=== PATIENT | female | born 2000 | race Caucasian/White ===

== ENCOUNTER 2021-07-12 09:18 | Outpatient (REF) | payer OTHER, SELFPAY ==
[2021-07-12 14:19] LABS: Monotest Negative (Negative)
== END 2021-07-12 09:19 | disposition home or self-care (01) ==
LOC: HO.HMGCLDS 09:18
PROVIDERS: Visit Provider Internal Medicine
DX: J02.9 Acute pharyngitis, unspecified (principal)
CPT/HCPCS: 36415; 86308

== ENCOUNTER 2022-04-13 19:10 | Emergency (ER) | payer OTHER, SELFPAY ==
--- NOTE | ~2022-04-13 | US_ITS ---
EXAMINATION: US PELVIS CLINICAL INFORMATION: Severe left lower quadrant pain COMPARISON: None TECHNIQUE: Ultrasound of the pelvis is performed using both transabdominal and transvaginal transducers along with Doppler. Transvaginal imaging is performed due to inadequate visualization transabdominally. FINDINGS: Uterus: The uterus is anteverted and measures 8.1 x 4.2 x 5.1 cm. The double wall endometrial thickness is 0.6 mm. Malpositioned IUD which appears low-lying and malrotated with portions of the arms embedded within the myometrium. The uterus is smooth in contour and has normal myometrial echogenicity. No visible fibroid. Adnexa: There is normal color flow to the adnexa. There is no ovarian torsion. Right ovary was not identified sonographically. No right adnexal mass. Left ovary measures 3.1 x 2.1 x 1.9 cm. Left ovary is unremarkable in appearance with vascular flow present. Trace simple pelvic free fluid, within physiologic limits of volume. US/US pelvic and transvaginal IMPRESSION: Malpositioned IUD which appears low-lying and malrotated with portions of the arms embedded within the myometrium, which may compromise efficacy. Left ovary is unremarkable without evidence of ovarian torsion. The right ovary was not identified sonographically.
--- NOTE | ~2022-04-13 | US_ITS ---
EXAMINATION: US PELVIS CLINICAL INFORMATION: Severe left lower quadrant pain COMPARISON: None TECHNIQUE: Ultrasound of the pelvis is performed using both transabdominal and transvaginal transducers along with Doppler. Transvaginal imaging is performed due to inadequate visualization transabdominally. FINDINGS: Uterus: The uterus is anteverted and measures 8.1 x 4.2 x 5.1 cm. The double wall endometrial thickness is 0.6 mm. Malpositioned IUD which appears low-lying and malrotated with portions of the arms embedded within the myometrium. The uterus is smooth in contour and has normal myometrial echogenicity. No visible fibroid. Adnexa: There is normal color flow to the adnexa. There is no ovarian torsion. Right ovary was not identified sonographically. No right adnexal mass. Left ovary measures 3.1 x 2.1 x 1.9 cm. Left ovary is unremarkable in appearance with vascular flow present. Trace simple pelvic free fluid, within physiologic limits of volume. US/US pelvic ovarian doppler IMPRESSION: Malpositioned IUD which appears low-lying and malrotated with portions of the arms embedded within the myometrium, which may compromise efficacy. Left ovary is unremarkable without evidence of ovarian torsion. The right ovary was not identified sonographically.
--- NOTE | ~2022-04-13 | CT_ITS ---
EXAMINATION: CT ABDOMEN AND PELVIS WITH CONTRAST CLINICAL INFORMATION: Left lower quadrant pain COMPARISON: Ultrasound pelvis 04/13/2022 TECHNIQUE: Multidetector volumetric images were obtained from the superior aspect of the liver through the pubic symphysis following administration 85 mL of Omnipaque 350 intravenous contrast. Sagittal and coronal reformatted images were obtained on the technologist's workstation. Oral contrast: No This CT examination was performed using dose optimization techniques as appropriate, variously including the following: *Automated exposure control *Adjustment of mA and/or kV according to patient size (this includes techniques or standardized protocols for targeted exams where dose is matched to indication/reason for exam; i.e. extremities or head) *Use of iterative reconstruction technique DLP: 952 mGy-cm FINDINGS: LUNG BASES: The visualized lung bases are unremarkable. LIVER, GALLBLADDER, AND BILIARY TREE: The liver is normal in size, shape, and mild hypoattenuation.. No focal hepatic lesion or biliary ductal dilatation is present. The gallbladder is unremarkable with no evidence of radiopaque gallstones, gallbladder wall thickening, or obvious pericholecystic inflammatory changes. PANCREAS: Unremarkable. SPLEEN: Unremarkable. ADRENAL GLANDS: Unremarkable. KIDNEYS AND URETERS: The kidneys are normal in size, shape, and attenuation. There is a 2 mm nonobstructive radiopaque calculi lower pole calyx right kidney. No additional radiopaque calculi seen. There is no hydronephrosis. No focal lesion seen. There is no perinephric stranding. BLADDER: Unremarkable. GASTROINTESTINAL TRACT: There is scattered stool and gas seen throughout the colon without significant distention. The small bowel loops are normal caliber. Appendix is normal caliber. ABDOMINAL WALL: No significant hernia is appreciated. LYMPH NODES: Normal. VASCULAR: Unremarkable. PELVIC VISCERA: There is a IUD visualized within the uterus. No adnexal mass or free fluid seen. No adnexal free fluid or abnormal lymphadenopathy. OSSEOUS STRUCTURES: No aggressive lytic or sclerotic process seen. CT/CT abdomen pelvis w IV con IMPRESSION: 1. No acute intra-abdominal process seen. 2. Nonobstructive radiopaque calculi lower pole calyx right kidney.. Mild hepatic steatosis. 3. An IUD is noted within the endometrial canal, better described on the preceding ultrasound pelvis exam Fleischner guidelines were followed.
[2022-04-13 19:14] VITALS: BP 137/91; PULSE 60; RESP 18; TEMP 36.8; O2SAT 97; BMI 36.9
--- NOTE | 2022-04-13 19:22 | ED.ABDPAIN ---
HPI - Abdominal Pain General Chief Complaint: Abdominal Pain Stated Complaint: abd pain Time Seen by Provider: 04/13/22 19:13 Source: patient Mode of arrival: ambulatory Limitations: no limitations History of Present Illness HPI narrative: This is a 22-year-old female presenting to the emergency department with sudden onset severe left lower quadrant pain that radiates to left flank region. Patient tells me pain started at approximately 17:00, has been sharp, intermittent in nature and rates it a 10/10. Patient still has her appendix, gallbladder. No OBGYN issues that she knows of, no history of ovarian cyst. Unlikely that she is she tells me she has an IUD and had a negative at home test a few days ago. Patient diaphoretic secondary to pain and appears uncomfortable. Patient denies chest pain, shortness of breath, fevers, chills, headache, vision changes, dizziness, weakness. Patient does not get normal periods as she is on an IUD, she experiences intermittent spotting. MD elicited complaint: abdominal pain Related Data Home Medications Medication Instructions Recorded Confirmed albuterol sulfate 90 mcg/actuation 2 puff inhalation Q6H PRN wheezing 07/12/21 07/12/21 aerosol inhaler buspirone 30 mg tablet 30 mg PO BID 07/12/21 07/12/21 fluoxetine 40 mg capsule 40 mg PO DAILY 07/12/21 07/12/21 lamotrigine 250 mg tablet,extended 250 mg PO DAILY 07/12/21 07/12/21 release 24 hr Previous Rx's Medication Instructions Recorded azithromycin 250 mg tablet See Rx Instructions PO .COMPLEX #6 07/12/21 tabs morphine 15 mg immediate release 15 mg PO Q8H PRN pain #8 tabs 04/13/22 tablet ondansetron 4 mg disintegrating 4 mg PO Q6H PRN nausea and 04/13/22 tablet vomiting #14 tabs Allergies Allergy/AdvReac Type Severity Reaction Status Date / Time No Known Allergies Allergy Verified 07/12/21 09:11 Review of Systems Review of Systems Constitutional : No Weight loss, No Fever, No Chills, No Fatigue, No Malaise ENT/Mouth : No sore throat, No Rhinorrhea Eyes: No Eye Pain, No Swelling, No Redness Cardiovascular : No Chest Pain, No SOB, No Dyspnea on Exertion, No Orthopnea, No Edema, No Palpitations Respiratory : No Cough, No Sputum, No Wheezing Gastrointestinal : No Nausea, No Vomiting, No Diarrhea, No Constipation, + abdominal Pain, No Hematochezia, No Melena Genitourinary : No Dysuria, No Urinary Frequency, No Hematuria, Musculoskeletal : No joint pain, No Myalgias, No Joint Swelling Skin : No Skin Lesions, No rash Neuro : No Weakness, No Numbness, No Dizziness, No Headache Psych : No Anxiety/Panic, No Depression All other systems reviewed and are negative Yes all other systems are reviewed and are negative [facility] Past Medical History Attestation statement: The following information was validated with the patient. Source: old records reviewed and nursing notes reviewed Social History Social History Alcohol intake: current Alcohol intake frequency: holidays/special occasions only Smoked in Last 30 Days: No Use of substances other than those prescribed or required for medical reasons: No Advance Directives: No Advance Directives Information Provided: No Physical Exam ED Vital Signs: Vital Signs - 24 hr 04/13/22 19:14 04/13/22 20:12 04/13/22 22:02 Temperature 98.3 F 97.9 F 98.2 F Pulse Rate 60 62 64 Respiratory Rate 18 17 20 Blood Pressure 137/91 H 138/85 122/67 Pulse Oximetry 97 96 97 Oxygen Delivery Method Room Air Room Air Room Air BMI result Body Mass Index 36.9 Vital signs stable Appearance: Alert.? Oriented X3.? No acute distress.? Head: Normocephalic, atraumatic, no step-offs or deformities Eyes: Pupils equal, round and reactive to light.? ENT: Pharynx normal.? Neck: Normal inspection.? Neck supple.? CVS: Normal heart rate and rhythm.? Pulses normal.? Respiratory: No respiratory distress.? Breath sounds normal.? Abdomen: Soft and significant tenderness to lower abdomen particularly to left lower quadrant..? Skin: Skin warm and dry.? Normal skin color.? Normal skin turgor.? Extremities: No lower extremity edema.? No calf ttp. 5/5 strength to bilateral upper and lower extremities Back: No CVA tenderness bilaterally Neuro: Oriented X 3.? No motor deficit.? No sensory deficit. CN 2-12 intact Course Reevaluation(s) Reevaluation #1: CBC with slight leukocytosis 11.6. Chemistry with no acute electrolyte abnormalities requiring intervention. Lipase within normal limits. Beta hCG negative. Urine negative. COVID negative. Ultrasound showing a malpositioned IUD which appears low lying and malrotated with portions of the arms imbedded within the myometrium which may compromise efficacy. Left ovary is unremarkable without evidence of ovarian torsion. Right ovary was not identified on ultrasound therefore low suspicion for torsion also patient's pains primarily to the left lower quadrant therefore low suspicion. CT of the abdomen and pelvis with no acute intra-abdominal process seen. Nonobstructive radiopaque calculi the lower pole of the harvinder of the right kidney. Mild hepatic steatosis. An IUD is noted within the endometrial canal again likely malpositioned. Patient continued to report pain therefore Dilaudid was given 0.5 initially continued to complain of 6/10 pain another 0.25 mg of Dilaudid ordered. I did speak to Dr. Bonner you states that IUD should come out. IUD was removed at the bedside by this NANETTE and Dr. Cho. Patient reports after IUD was removed slight symptomatic relief Time: 22:53 Reevaluation #2: Patient now reports pain is at 2/10, no longer having discomfort to flank. Patient tells me her pain is much improved from when she 1st arrived. Denies chest pain and shortness of breath. Patient will be discharged home advised to follow-up with OBGYN. Educated patient on diagnosis and treatment plan, answered all question, patient verbalizes understanding. At this time patient will be discharged home, advised to return with new or worsening symptoms. Educated on worrisome signs and symptoms and when to return. At this time I feel comfortable discharge home. Time: 23:41 Medical Decision Making Medical Decision Making [facility] Narrative: 192 22-year-old female presents with sudden-onset severe left lower quadrant pain that radiates to her back. Physical exam with significant tenderness to lower abdomen particularly to left lower quadrant. Concerns for possible appendicitis versus acute abdomen versus diverticulitis versus kidney stones. Unlikely pyelonephritis, UTI. Less likely ovarian torsion or ruptured ovarian cyst however will obtain ultrasound to rule out. HX and PE not consistent w/ AAA, or dissection. Plan ultrasound, labs, imaging, urine. Differential Diagnosis Differential Diagnoses: The differential diagnosis associated with the presentation includes Concerns for possible appendicitis versus acute abdomen versus diverticulitis versus kidney stones. Unlikely pyelonephritis, UTI. Less likely ovarian torsion or ruptured ovarian cyst. HX and PE not consistent w/ AAA, or dissection. Admission/Observation Consideration of admission/observation: Escalation of care including admission/observation considered Lab Data MDM Lab Attestation statement: I reviewed the patient's lab results. 04/13/22 19:21 04/13/22 19:21 Labs: Lab Results 04/13/22 04/13/22 04/13/22 Range/Units 19:21 19:21 19:21 WBC 11.6 H (4.8-10.8) X10*3/uL RBC 4.40 (4.20-5.50) X10*6/uL Hgb 14.0 (12.0-16.0) g/dl Hct 39.8 (37.0-47.0) % MCV 90.5 (80.0-98.0) fL MCH 31.8 (27.0-33.0) pg MCHC 35.2 H (31.0-35.0) g/dl RDW 12.0 (11.0-16.0) % Plt Count 325 (160-400) X10*3/uL MPV 9.5 (9.4-12.3) fL Immature Gran % (Auto) 0.4 (0.0-0.4) % Neut % (Auto) 52.0 (45-73) % Lymph % (Auto) 31.5 (20-40) % [place] % (Auto) 7.7 (2-11) % Eos % (Auto) 7.7 H (0-4) % Baso % (Auto) 0.7 (0-2) % Lymph # (Auto) 3.6 (1.2-4.9) X10*3/uL [place] # (Auto) 0.9 (0.1-1.2) X10*3/uL Eos # (Auto) 0.9 H (0.0-0.4) X10*3/uL Baso # (Auto) 0.1 (0.0-0.2) X10*3/uL Abs Immat Gran (auto) 0.05 H (0.00-0.03) X10*3/uL Absolute Neuts (auto) 6.0 (2.0-8.3) x10*3/uL Absolute Nucleated RBC 0.000 (0.0-0.012) X10*3/uL Nucleated RBC % (auto) 0.0 (0.0-0.2) /100WBC Sodium 139 (135-145) mmol/L Potassium 3.8 (3.3-5.1) mmol/L Chloride 105 (96-108) mmol/L Carbon Dioxide 22 (22-29) mmol/L Anion Gap 16 (12-20) BUN 13 (9-16) mg/dL Creatinine 0.84 (0.5-1.4) mg/dL Estim Creat Clear Calc 139.8 Estimated GFR > 60 Random Glucose 93 (60-115) mg/dL Lactic Acid 1.7 (0.5-2.0) mmol/L Calcium 9.7 (8.4-10.2) mg/dL Magnesium 1.8 (1.6-2.6) mg/dL Total Bilirubin 0.6 (0.0-1.0) mg/dL AST 30 (5-31) U/L ALT 45 H (0-31) U/L Alkaline Phosphatase 69 (39-117) U/L Total Protein 8.0 (6.5-8.0) g/dL Albumin 4.8 (3.5-5.0) g/dL Lipase 35 (8-78) U/L Beta HCG, Quant < 2 mIU/mL Urine Color Urine Appearance Urine pH (5.0-9.0) Ur Specific [place] (1.005-1.025) Urine Protein (Neg-Trace) mg/dL Urine Glucose (UA) (Negative) mg/dL Urine Ketones (Negative) mg/dL Urine Blood (Negative) Urine Nitrite (Negative) Ur Leukocyte Esterase (Negative) Urine RBC (0-2) /HPF Urine WBC (0-5) /HPF Ur Squamous Epith Cells (0-2) /HPF Urine Bacteria (None Seen) Hyaline Casts (0-2) /LPF COVID-19 (TONIA) (Negative) COVID-19 Clin Com 04/13/22 04/13/22 Range/Units 19:23 19:29 WBC (4.8-10.8) X10*3/uL RBC (4.20-5.50) X10*6/uL Hgb (12.0-16.0) g/dl Hct (37.0-47.0) % MCV (80.0-98.0) fL MCH (27.0-33.0) pg MCHC (31.0-35.0) g/dl RDW (11.0-16.0) % Plt Count (160-400) X10*3/uL MPV (9.4-12.3) fL Immature Gran % (Auto) (0.0-0.4) % Neut % (Auto) (45-73) % Lymph % (Auto) (20-40) % [place] % (Auto) (2-11) % Eos % (Auto) (0-4) % Baso % (Auto) (0-2) % Lymph # (Auto) (1.2-4.9) X10*3/uL [place] # (Auto) (0.1-1.2) X10*3/uL Eos # (Auto) (0.0-0.4) X10*3/uL Baso # (Auto) (0.0-0.2) X10*3/uL Abs Immat Gran (auto) (0.00-0.03) X10*3/uL Absolute Neuts (auto) (2.0-8.3) x10*3/uL Absolute Nucleated RBC (0.0-0.012) X10*3/uL Nucleated RBC % (auto) (0.0-0.2) /100WBC Sodium (135-145) mmol/L Potassium (3.3-5.1) mmol/L Chloride (96-108) mmol/L Carbon Dioxide (22-29) mmol/L Anion Gap (12-20) BUN (9-16) mg/dL Creatinine (0.5-1.4) mg/dL Estim Creat Clear Calc Estimated GFR Random Glucose (60-115) mg/dL Lactic Acid (0.5-2.0) mmol/L Calcium (8.4-10.2) mg/dL Magnesium (1.6-2.6) mg/dL Total Bilirubin (0.0-1.0) mg/dL AST (5-31) U/L ALT (0-31) U/L Alkaline Phosphatase (39-117) U/L Total Protein (6.5-8.0) g/dL Albumin (3.5-5.0) g/dL Lipase (8-78) U/L Beta HCG, Quant mIU/mL Urine Color Yellow Urine Appearance Clear Urine pH 5.5 (5.0-9.0) Ur Specific [place] 1.020 (1.005-1.025) Urine Protein Negative (Neg-Trace) mg/dL Urine Glucose (UA) Negative (Negative) mg/dL Urine Ketones Negative (Negative) mg/dL Urine Blood Trace H (Negative) Urine Nitrite Negative (Negative) Ur Leukocyte Esterase Negative (Negative) Urine RBC 0-2 (0-2) /HPF Urine WBC 0-5 (0-5) /HPF Ur Squamous Epith Cells 0-2 (0-2) /HPF Urine Bacteria None Seen (None Seen) Hyaline Casts 0-2 (0-2) /LPF COVID-19 (TONIA) Negative (Negative) COVID-19 Clin Com See Note Independent Interpretation I performed an independent interpretation of an: Ultrasound and CT Scan Radiology Impression Discussion of test interpretation with radiology: I have reviewed the radiologist's reading. Core Measures AMI core measures followed: Yes Measure exclusions: not indicated Medications Administered Discontinued Medications Generic Name Dose Route Start Last Admin Trade Name Freq PRN Reason Stop Dose Admin Hydromorphone HCl 0.5 mg 04/13/22 20:42 04/13/22 20:57 Hydromorphone Hcl 0.5 Mg/0.5 Ml Syringe IVPUSH 04/13/22 20:43 0.5 mg ONCE ONE Administration Protocol Hydromorphone HCl 0.25 mg 04/13/22 22:09 04/13/22 22:39 Hydromorphone Hcl 0.5 Mg/0.5 Ml Syringe IVPUSH 04/13/22 22:10 0.25 mg ONCE ONE Administration Protocol Iohexol 100 ml 04/13/22 20:23 04/13/22 20:24 Iohexol 350 Mg/Ml 100 Ml Infus..Btl IV 04/13/22 20:24 85 ml ONCE ONE Administration Morphine Sulfate 4 mg 04/13/22 19:13 04/13/22 19:46 Morphine Sulfate 4 Mg/Ml Cartridge IVPUSH 04/13/22 19:14 4 mg ONCE ONE Administration Protocol Critical Care Time Critical Care Time Critical Care Time: Yes Total Critical Care Time: 35 Attestation: I attest to this time spent taking care of the patient, obtaining history, physical, reviewing labs, imaging, speaking to my attending, speaking to specialist. Discharge Plan Discharge Clinical Impression: Lower abdominal pain, Malpositioned IUD Patient Disposition: Home, Self-Care Instructions: Abdominal Pain (ED) Additional Instructions: Take your medications as prescribed. If you were prescribed antibiotics today, it is important that you take your medication to their entirety, do not skip any doses, do not finish them early. Follow-up with your primary care provider this week. Follow up with OBGYN as soon as possible Return to the emergency department with new or worsening symptoms. Such as fevers, chills, chest pain, shortness of breath, nausea, vomiting, dizziness, headache, vision changes, lethargy In case of emergency call 911 CT/CT abdomen pelvis w IV con IMPRESSION: 1. No acute intra-abdominal process seen. 2. Nonobstructive radiopaque calculi lower pole calyx right kidney.. Mild hepatic steatosis. 3. An IUD is noted within the endometrial canal, better described on the preceding ultrasound pelvis exam Fleischner guidelines were followed. ?US/US pelvic and transvaginal IMPRESSION: ? Malpositioned IUD which appears low-lying and malrotated with portions of the arms embedded within the myometrium, which may compromise efficacy. ? Left ovary is unremarkable without evidence of ovarian torsion. The right ovary was not identified sonographically. ? Prescriptions: New morphine 15 mg tablet 15 mg PO Q8H PRN (Reason: pain) Qty: 8 0RF Rx Instructions: Partial Fill upon patient request. ondansetron 4 mg tablet,disintegrating 4 mg PO Q6H PRN (Reason: nausea and vomiting) Qty: 14 0RF No Action buspirone 30 mg tablet 30 mg PO BID lamotrigine 250 mg tablet extended release 24hr 250 mg PO DAILY fluoxetine 40 mg capsule 40 mg PO DAILY albuterol sulfate 90 mcg/actuation HFA aerosol inhaler 2 puff inhalation Q6H PRN (Reason: wheezing) azithromycin 250 mg tablet See Rx Instructions PO .COMPLEX Qty: 6 0RF Rx Instructions: take 500 mg today (day 1), then 250 mg for 4 days (days 2-5) PO Referrals: Physician,Unknown J [Primary Care Provider] - 2 days Stand Alone Forms: Work/School Release
[2022-04-13 19:26] LABS: MANUAL DIFF FLAG NO
[2022-04-13 19:39] LABS: Lactic Acid 1.7 mmol/L (0.5-2.0)
[2022-04-13 19:43] LABS: Basophils Absolute Auto 0.1 X10*3/uL (0.0-0.2); Basophils Percent Auto 0.7 % (0-2); Eosinophils Absolute Auto 0.9 X10*3/uL (0.0-0.4); Eosinophils Percent Auto 7.7 % (0-4); Hematocrit 39.8 % (37.0-47.0); Imm Gran Abs Auto 0.05 X10*3/uL (0.00-0.03); Imm Gran Pct Auto 0.4 % (0.0-0.4); Lymphocytes Absolute Auto 3.6 X10*3/uL (1.2-4.9); Lymphocytes Percent Auto 31.5 % (20-40); Mean Corpuscular HGB Conc 35.2 g/dl (31.0-35.0); Mean Corpuscular Hemoglobin 31.8 pg (27.0-33.0); Mean Corpuscular Volume 90.5 fL (80.0-98.0); Mean Platelet Volume 9.5 fL (9.4-12.3); Monocytes Absolute Auto 0.9 X10*3/uL (0.1-1.2); Monocytes Percent Auto 7.7 % (2-11); Platelet Count 325 X10*3/uL (160-400); White Blood Count 11.6 X10*3/uL (4.8-10.8)
[2022-04-13] MEDS: Morphine Sulfate 4 MG/ML CARTRIDGE IVPUSH (19:46)
[2022-04-13 19:47] LABS: Alanine Aminotransferase 45 U/L (0-31); Albumin Level 4.8 g/dL (3.5-5.0); Alkaline Phosphatase 69 U/L (39-117); Anion Gap 16 (12-20); Aspartate Amino Transferase 30 U/L (5-31); Bilirubin Total 0.6 mg/dL (0.0-1.0); Blood Urea Nitrogen 13 mg/dL (9-16); Calcium 9.7 mg/dL (8.4-10.2); Carbon Dioxide 22 mmol/L (22-29); Chloride 105 mmol/L (96-108); Creatinine Clr Calc Pharmacy 139.8; Estimated Glomerular Filt Rate > 60; Glucose Random 93 mg/dL (60-115); Lipase 35 U/L (8-78); Magnesium 1.8 mg/dL (1.6-2.6); Potassium 3.8 mmol/L (3.3-5.1); Sodium 139 mmol/L (135-145)
[2022-04-13 19:49] LABS: Appearance Urine Clear; Color Urine Yellow; Glucose Urine UA Negative (Negative); Leukocyte Esterase Urine Negative (Negative); Nitrite Urine Negative (Negative); PH 5.5 (5.0-9.0); UMIC TRIGGER UACC YES; Urine Blood Trace (Negative); Urine Ketones Negative (Negative); Urine Protein Negative (Neg-Trace)
[2022-04-13 19:54] LABS: HCG Quantitative < 2 mIU/mL
[2022-04-13 19:55] LABS: Bacteria Urine None Seen (None Seen); Hyaline Casts Urine 0-2 /LPF (0-2); RBC Urine 0-2 /HPF (0-2); Squamous Epithelial Cell Urine 0-2 /HPF (0-2); WBC Urine 0-5 /HPF (0-5)
[2022-04-13 20:05] LABS: COVID-19 Test Negative (Negative); IDNOW Serial# 55D5AD1C
[2022-04-13 20:12] VITALS: BP 138/85; PULSE 62; RESP 17; TEMP 36.6; O2SAT 96
[2022-04-13] MEDS: iohexoL 350 MG/ML 100 ML INFUS..BTL IV (20:24)
[2022-04-13] MEDS: HYDROmorphone HCl 0.5 MG/0.5 ML SYRINGE IVPUSH (20:57)
--- NOTE | 2022-04-13 21:01 | PC.NURSE ---
pt medicated per May, Notified STORMY Nolen
[2022-04-13 22:02] VITALS: BP 122/67; PULSE 64; RESP 20; TEMP 36.8; O2SAT 97
[2022-04-13] MEDS: HYDROmorphone HCl 0.5 MG/0.5 ML SYRINGE 0.25 MG IVPUSH (22:39)
== END 2022-04-14 00:04 | disposition home or self-care (01) ==
PROVIDERS: Physician Assistant; Emergency Provider Internal Medicine
DX: R10.32 Left lower quadrant pain (principal); T83.32XA Displacement of intrauterine contraceptive device, initial encounter; Y76.8 Miscellaneous obstetric and gynecological devices associated with adverse incidents, not elsewhere classified; Y92.9 Unspecified place or not applicable; Z30.432 Encounter for removal of intrauterine contraceptive device; Z79.899 Other long term (current) drug therapy; Z20.822 Contact with and (suspected) exposure to COVID-19
CPT/HCPCS: 74177; 76830; 76856; 80053; 81001; 83605; 83690; 83735; 84702; 85025; 87040; 87635; 93975; 96374; 96375; 96376; 99284; J1170; J2270; Q9967

== ENCOUNTER 2022-06-04 18:01 | Inpatient (IN) | payer OTHER, SELFPAY ==
--- NOTE | ~2022-06-04 | CT_ITS ---
EXAMINATION: CT ABDOMEN AND PELVIS WITH CONTRAST CLINICAL INFORMATION: Abdominal pain. Diaphoresis. COMPARISON: CT abdomen/pelvis dated 04/13/2022. TECHNIQUE: Multidetector volumetric images were obtained from the superior aspect of the liver through the pubic symphysis following administration 85 mL of Omnipaque 350 intravenous contrast. Sagittal and coronal reformatted images were obtained on the technologist's workstation. Oral contrast: No This CT examination was performed using dose optimization techniques as appropriate, variously including the following: *Automated exposure control *Adjustment of mA and/or kV according to patient size (this includes techniques or standardized protocols for targeted exams where dose is matched to indication/reason for exam; i.e. extremities or head) *Use of iterative reconstruction technique DLP: 856 mGy-cm FINDINGS: LUNG BASES: The visualized lung bases are unremarkable. LIVER, GALLBLADDER, AND BILIARY TREE: The liver is normal in size, shape, and attenuation. No focal hepatic lesion or biliary ductal dilatation is present. The gallbladder is unremarkable with no evidence of radiopaque gallstones, gallbladder wall thickening, or obvious pericholecystic inflammatory changes. PANCREAS: Unremarkable. SPLEEN: Mildly enlarged measuring up to 14.3 cm, unchanged when compared to the prior examination. ADRENAL GLANDS: Unremarkable. KIDNEYS AND URETERS: The kidneys are normal in size, shape, and attenuation. Right lower pole 0.3 cm nonobstructing renal stone, unchanged. No additional renal or ureteral stone. No hydronephrosis or hydroureter. There is mild right perinephric stranding and minimal left perinephric stranding, new when compared to the prior examination. Findings could represent pyelonephritis in the appropriate clinical setting. Appears to be minimal enhancement within the wall of the right and left renal pelvis, new/increased when compared to the prior examination. BLADDER: Nondistended. GASTROINTESTINAL TRACT: The small and large bowel are unremarkable. No small or large bowel traction. No bowel wall thickening or inflammatory change. The appendix is unremarkable. PERITONEAL CAVITY: No intra-abdominal free air or free fluid. No intra-abdominal mass or organized fluid collection/abscess formation. ABDOMINAL WALL: No significant hernia is appreciated. LYMPH NODES: No lymphadenopathy. VASCULAR: Unremarkable. PELVIC VISCERA: IUD within the uterus. OSSEOUS STRUCTURES: Unremarkable. CT/CT abdomen pelvis w IV con IMPRESSION: 1. Mild right and minimal left perinephric stranding, new when compared to the prior examination. There appears to be minimal enhancement within the wall of the right and left renal pelvis, new/increased when compared to the prior examination. Findings could represent pyelonephritis in the appropriate clinical setting. 2. Stable right lower pole 0.3 cm nonobstructing renal stone. No additional renal or ureteral stone. No hydronephrosis or hydroureter. 3. No bowel wall thickening or inflammatory change. No small or large bowel obstruction. Unremarkable appendix. 4. No intra-abdominal mass, lymphadenopathy, or ascites. Fleischner guidelines were followed.
[2022-06-04 18:09] VITALS: BP 129/78; PULSE 107; RESP 20; TEMP 37.1; O2SAT 98; BMI 36.9
--- NOTE | 2022-06-04 18:09 | ED_ITS ---
HPI - Fever General Chief Complaint: General Medical Stated Complaint: fever,headache Time Seen by Provider: 06/04/22 18:06 Source: patient Mode of arrival: ambulatory Limitations: no limitations History of Present Illness HPI Narrative: 22-year-old female presents with 1 day of fevers as high as 103, back and flank pain, abdominal pain, tachycardia and diaphoresis. MD elicited complaint: fever Pertinent past history: sepsis Onset (ago): day(s) (1) Measured temperature: 103 F Context: sick contacts and recent travel Relieving factors: acetaminophen and ibuprofen Associated symptoms: chills, abdominal pain, diarrhea, back/flank pain and other (Diaphoresis) Treatments prior to arrival fever: acetaminophen and ibuprofen Related Data Home Medications Medication Instructions Recorded Confirmed albuterol sulfate 90 mcg/actuation 2 puff inhalation Q6H PRN wheezing 07/12/21 07/12/21 aerosol inhaler buspirone 30 mg tablet 30 mg PO BID 07/12/21 07/12/21 fluoxetine 40 mg capsule 40 mg PO DAILY 07/12/21 07/12/21 lamotrigine 250 mg tablet,extended 250 mg PO DAILY 07/12/21 07/12/21 release 24 hr Previous Rx's Medication Instructions Recorded azithromycin 250 mg tablet See Rx Instructions PO .COMPLEX #6 07/12/21 tabs morphine 15 mg immediate release 15 mg PO Q8H PRN pain #8 tabs 04/13/22 tablet ondansetron 4 mg disintegrating 4 mg PO Q6H PRN nausea and 04/13/22 tablet vomiting #14 tabs Allergies Allergy/AdvReac Type Severity Reaction Status Date / Time No Known Allergies Allergy Verified 07/12/21 09:11 Review of Systems Review of Systems: Constitutional: Positive Fever, positive Chills ENT/Mouth: No Ear Pain, No Hoarseness, No sore throat Eyes: No Eye Pain, No Swelling, No Redness, No Foreign Body Cardiovascular: No Chest Pain, No SOB Respiratory: No Cough, No Dyspnea Gastrointestinal: Positive Nausea, No Vomiting, positive Diarrhea, positive flank and abdominal Pain Genitourinary: No Dysuria, No Hematuria Musculoskeletal: positive back pain, No Myalgias, No Joint Swelling Skin: No Skin lacerations, No rash Neuro: No Weakness, No Dizziness, No Headache Yes all other systems are reviewed and are negative [facility] Past Medical History Attestation statement: The following information was validated with the patient. Source: old records reviewed Medical History Mood disorder Social History Social History Alcohol intake: current Alcohol intake frequency: holidays/special occasions only Advance Directives: No Advance Directives Information Provided: No Physical Exam Vital Signs: Vital Signs: Last Vital Signs Temp 101.8 F H 06/04/22 19:45 Pulse 93 06/04/22 20:19 Resp 17 06/04/22 20:19 BP 112/73 06/04/22 20:19 Pulse Ox 97 06/04/22 19:45 O2 Del Method 06/04/22 19:45 BMI result Body Mass Index 36.9 Appearance: Alert. Oriented X3. Moderate distress. Febrile. Eyes: Pupils equal, round and reactive to light. Sclera nonicteric. ENT: Pharynx normal. Neck: Normal inspection. Neck supple. CVS: Tachycardic heart rate and rhythm. Diaphoretic. Respiratory: No respiratory distress. Breath sounds normal. Abdomen: Soft and diffusely tender with CVA tenderness. Skin: Skin warm and diaphoretic. Normal skin color. Extremities: No lower extremity edema. Gait well-balanced well coordinated. Neuro: No motor deficit. No sensory deficit. Cranial nerves 2-12 intact. Course Course Course Narrative: 22-year-old female with past medical history of kidney stones presents with approximate 24 hours of fevers, back pain, abdominal pain, diarrhea and diaphoresis. Patient has had fevers as high as 103, has been taking Tylenol and Motrin around the clock since yesterday starting about 18:00. Patient has been able to eat and drink, but has not been able to control the fever with over-the- counter measures. She has been diaphoretic, diaphoretic on presentation, tachycardic, and febrile. Patient has traveled outside of the [place], [place] 2 weeks ago, and works as an emergency department RN. Patient has had multiple sick contacts. Will order labs, fluids for sepsis protocol, stool study, COVID, lactic and cultures. Patient has even unlabored respirations, alert oriented x4, diffuse abdominal tenderness with back pain, sexually active with IUD. Low likelihood of pregna ncy at this time. Will order D-dimer, while I do feel this is an infectious etiology, patient did travel approximately 2 weeks ago, PE is considered in differentials. 18:16 rectal temperature is 102.8. Patient meets sepsis protocol with tachycardia, fevers, tachypnea and diaphoresis. 18:27 CT abdomen pelvis with contrast pending. COVID influenza RSV test are negative. 18:42 urinalysis positive for leukocyte esterase, physical presentation consistent with pyelo. Ordered for ceftriaxone. Imaging pending. 19:00 labs indicate white count of 14.7, chemistries are within normal limits, glucose 148. Lactic 1.0, urinalysis positive for heme, of leukocyte esterase with greater than 50 wbc's. Most likely pyelonephritis, kidney stone. D-dimer is 307, low likelihood of PE at this time, source of infection most likely pyelo, patient has no pain on inspiration, no dyspnea, no chest wall tenderness. No prior history of blood clots, no immunosuppression, clotting factor deficiency or chemotherapeutic agents. 20:34 CT scan indicates pyelonephritis. Lactic 1.0, 20:39 discussion with hospitalist, plan of care is to admit for pyelo with sepsis Consultations Consultation #1: Jonas Time: 20:30 Medications Administered Generic Name Dose Route Start Last Admin Trade Name Freq PRN Reason Stop Dose Admin Enoxaparin Sodium 40 mg 06/04/22 22:00 06/04/22 21:26 Enoxaparin Sodium 40 Mg/0.4 Ml Syringe SUBCUT 40 mg Q24H SILVERIO Administration Discontinued Medications Generic Name Dose Route Start Last Admin Trade Name Freq PRN Reason Stop Dose Admin Acetaminophen 650 mg 06/04/22 20:21 06/04/22 20:45 Acetaminophen 325 Mg Tablet PO 06/04/22 20:22 650 mg ONCE ONE Administration Buspirone HCl 30 mg 06/04/22 20:57 06/04/22 21:26 Buspirone Hcl 10 Mg Tablet PO 06/04/22 20:58 30 mg ONCE ONE Administration Fluoxetine HCl 40 mg 06/04/22 20:57 06/04/22 21:26 Fluoxetine Hcl 20 Mg Capsule PO 06/04/22 20:58 40 mg ONCE ONE Administration Sodium Chloride 1,000 mls @ 999 mls/hr 06/04/22 18:30 06/04/22 18:54 Ns IV 06/04/22 19:30 Infused .Q1H1M SILVERIO Infusion Ceftriaxone Sodium 1 gm/ 50 mls @ 100 mls/hr 06/04/22 18:42 06/04/22 19:22 Sodium Chloride IV 06/04/22 19:11 Infused ONCE ONE Infusion Sodium Chloride 1,000 mls @ 999 mls/hr 06/04/22 21:20 06/04/22 21:26 Ns IV 06/04/22 22:20 999 mls/hr .Q1H1M ONE Administration Lamotrigine 250 mg 06/04/22 20:57 06/04/22 21:34 Lamotrigine 25 Mg Tablet PO 06/04/22 20:58 250 mg ONCE ONE Administration Morphine Sulfate 4 mg 06/04/22 20:35 06/04/22 20:45 Morphine Sulfate 4 Mg/Ml Cartridge IVPUSH 06/04/22 20:36 4 mg ONCE ONE Administration Protocol Ondansetron HCl 4 mg 06/04/22 20:35 06/04/22 20:46 Ondansetron Hcl 4 Mg/2 Ml Vial IVPUSH 06/04/22 20:36 4 mg ONCE ONE Administration Medical Decision Making Differential Diagnosis Differential Diagnoses: The differential diagnosis associated with the presentation includes UTI, pneumonia, COVID, influenza, pyelo, sepsis Admission/Observation Consideration of admission/observation: Escalation of care including admission/observation considered Will need admission for sepsis Consult Healthcare Provider Management of the patient was discussed with: Hospitalist Lab Data MDM Lab Attestation statement: I reviewed the patient's lab results. 06/04/22 18:22 06/04/22 18:22 Labs: Lab Results 06/04/22 06/04/22 06/04/22 Range/Units 18:22 18:22 18:22 WBC 14.7 H (4.8-10.8) X10*3/uL RBC 4.25 (4.20-5.50) X10*6/uL Hgb 13.0 (12.0-16.0) g/dl Hct 37.9 (37.0-47.0) % MCV 89.2 (80.0-98.0) fL MCH 30.6 (27.0-33.0) pg MCHC 34.3 (31.0-35.0) g/dl RDW 11.8 (11.0-16.0) % Plt Count 336 (160-400) X10*3/uL MPV 8.8 L (9.4-12.3) fL Immature Gran % (Auto) 0.4 (0.0-0.4) % Neut % (Auto) 76.0 H (45-73) % Lymph % (Auto) 9.2 L (20-40) % [place] % (Auto) 13.4 H (2-11) % Eos % (Auto) 0.7 (0-4) % Baso % (Auto) 0.3 (0-2) % Lymph # (Auto) 1.4 (1.2-4.9) X10*3/uL [place] # (Auto) 2.0 H (0.1-1.2) X10*3/uL Eos # (Auto) 0.1 (0.0-0.4) X10*3/uL Baso # (Auto) 0.0 (0.0-0.2) X10*3/uL Abs Immat Gran (auto) 0.06 H (0.00-0.03) X10*3/uL Absolute Neuts (auto) 11.2 H (2.0-8.3) x10*3/uL Absolute Nucleated RBC 0.000 (0.0-0.012) X10*3/uL Nucleated RBC % (auto) 0.0 (0.0-0.2) /100WBC Smear Tech's Comments VERIFIED D-Dimer High Sensitivty NG/ML Sodium 140 (135-145) mmol/L Potassium 3.6 (3.3-5.1) mmol/L Chloride 103 (96-108) mmol/L Carbon Dioxide 23 (22-29) mmol/L Anion Gap 18 (12-20) BUN 15 (9-16) mg/dL Creatinine 0.92 (0.5-1.4) mg/dL Estim Creat Clear Calc 127.7 Estimated GFR > 60 Random Glucose 148 H (60-115) mg/dL Lactic Acid (0.5-2.0) mmol/L Calcium 9.2 (8.4-10.2) mg/dL Troponin I High Sens (<3.5-17.0) ng/L Urine Color Urine Appearance Urine pH (5.0-9.0) Ur Specific [place] (1.005-1.025) Urine Protein (Neg-Trace) mg/dL Urine Glucose (UA) (Negative) mg/dL Urine Ketones (Negative) mg/dL Urine Blood (Negative) Urine Nitrite (Negative) Ur Leukocyte Esterase (Negative) Urine RBC (0-2) /HPF Urine WBC (0-5) /HPF Ur Squamous Epith Cells (0-2) /HPF Urine Bacteria (None Seen) Hyaline Casts (0-2) /LPF Urine Test (NEGATIVE) Influenza Type A (PCR) NEGATIVE (Negative) Influenza Type B (PCR) NEGATIVE (Negative) RSV RNA Qual (PCR) NEGATIVE (Negative) SARS-CoV-2 RNA (RT-PCR) NEGATIVE (Negative) 06/04/22 06/04/22 06/04/22 Range/Units 18:32 18:32 18:32 WBC (4.8-10.8) X10*3/uL RBC (4.20-5.50) X10*6/uL Hgb (12.0-16.0) g/dl Hct (37.0-47.0) % MCV (80.0-98.0) fL MCH (27.0-33.0) pg MCHC (31.0-35.0) g/dl RDW (11.0-16.0) % Plt Count (160-400) X10*3/uL MPV (9.4-12.3) fL Immature Gran % (Auto) (0.0-0.4) % Neut % (Auto) (45-73) % Lymph % (Auto) (20-40) % [place] % (Auto) (2-11) % Eos % (Auto) (0-4) % Baso % (Auto) (0-2) % Lymph # (Auto) (1.2-4.9) X10*3/uL [place] # (Auto) (0.1-1.2) X10*3/uL Eos # (Auto) (0.0-0.4) X10*3/uL Baso # (Auto) (0.0-0.2) X10*3/uL Abs Immat Gran (auto) (0.00-0.03) X10*3/uL Absolute Neuts (auto) (2.0-8.3) x10*3/uL Absolute Nucleated RBC (0.0-0.012) X10*3/uL Nucleated RBC % (auto) (0.0-0.2) /100WBC Smear Tech's Comments D-Dimer High Sensitivty 307 NG/ML Sodium (135-145) mmol/L Potassium (3.3-5.1) mmol/L Chloride (96-108) mmol/L Carbon Dioxide (22-29) mmol/L Anion Gap (12-20) BUN (9-16) mg/dL Creatinine (0.5-1.4) mg/dL Estim Creat Clear Calc Estimated GFR Random Glucose (60-115) mg/dL Lactic Acid 1.0 (0.5-2.0) mmol/L Calcium (8.4-10.2) mg/dL Troponin I High Sens < 3.5 (<3.5-17.0) ng/L Urine Color Urine Appearance Urine pH (5.0-9.0) Ur Specific [place] (1.005-1.025) Urine Protein (Neg-Trace) mg/dL Urine Glucose (UA) (Negative) mg/dL Urine Ketones (Negative) mg/dL Urine Blood (Negative) Urine Nitrite (Negative) Ur Leukocyte Esterase (Negative) Urine RBC (0-2) /HPF Urine WBC (0-5) /HPF Ur Squamous Epith Cells (0-2) /HPF Urine Bacteria (None Seen) Hyaline Casts (0-2) /LPF Urine Test (NEGATIVE) Influenza Type A (PCR) (Negative) Influenza Type B (PCR) (Negative) RSV RNA Qual (PCR) (Negative) SARS-CoV-2 RNA (RT-PCR) (Negative) 06/04/22 06/04/22 Range/Units 19:17 19:17 WBC (4.8-10.8) X10*3/uL RBC (4.20-5.50) X10*6/uL Hgb (12.0-16.0) g/dl Hct (37.0-47.0) % MCV (80.0-98.0) fL MCH (27.0-33.0) pg MCHC (31.0-35.0) g/dl RDW (11.0-16.0) % Plt Count (160-400) X10*3/uL MPV (9.4-12.3) fL Immature Gran % (Auto) (0.0-0.4) % Neut % (Auto) (45-73) % Lymph % (Auto) (20-40) % [place] % (Auto) (2-11) % Eos % (Auto) (0-4) % Baso % (Auto) (0-2) % Lymph # (Auto) (1.2-4.9) X10*3/uL [place] # (Auto) (0.1-1.2) X10*3/uL Eos # (Auto) (0.0-0.4) X10*3/uL Baso # (Auto) (0.0-0.2) X10*3/uL Abs Immat Gran (auto) (0.00-0.03) X10*3/uL Absolute Neuts (auto) (2.0-8.3) x10*3/uL Absolute Nucleated RBC (0.0-0.012) X10*3/uL Nucleated RBC % (auto) (0.0-0.2) /100WBC Smear Tech's Comments D-Dimer High Sensitivty NG/ML Sodium (135-145) mmol/L Potassium (3.3-5.1) mmol/L Chloride (96-108) mmol/L Carbon Dioxide (22-29) mmol/L Anion Gap (12-20) BUN (9-16) mg/dL Creatinine (0.5-1.4) mg/dL Estim Creat Clear Calc Estimated GFR Random Glucose (60-115) mg/dL Lactic Acid (0.5-2.0) mmol/L Calcium (8.4-10.2) mg/dL Troponin I High Sens (<3.5-17.0) ng/L Urine Color Yellow Urine Appearance Cloudy Urine pH 5.5 (5.0-9.0) Ur Specific [place] 1.020 (1.005-1.025) Urine Protein 30 (1+) H (Neg-Trace) mg/dL Urine Glucose (UA) Negative (Negative) mg/dL Urine Ketones Trace (Negative) mg/dL Urine Blood Small (1+) H (Negative) Urine Nitrite Negative (Negative) Ur Leukocyte Esterase Moderate (2+) H (Negative) Urine RBC 3-5 H (0-2) /HPF Urine WBC >50 H (0-5) /HPF Ur Squamous Epith Cells 3-5 (0-2) /HPF Urine Bacteria None Seen (None Seen) Hyaline Casts 0-2 (0-2) /LPF Urine Test NEGATIVE (NEGATIVE) Influenza Type A (PCR) (Negative) Influenza Type B (PCR) (Negative) RSV RNA Qual (PCR) (Negative) SARS-CoV-2 RNA (RT-PCR) (Negative) Independent Interpretation I performed an independent interpretation of an: EKG and CT Scan Interpretation: Sinus tachycardia Otherwise normal ECG No previous ECGs available Vent. rate 105 BPM DC interval 136 ms QRS duration 92 ms QT/QTc 326/430 ms P-R-T axes 45 63 27 04-JUN-2022 18:30:32 Radiology Impression Discussion of test interpretation with radiology: I have reviewed the radiologist's reading. Radiologist Impression: FINDINGS: LUNG BASES: The visualized lung bases are unremarkable.? LIVER, GALLBLADDER, AND BILIARY TREE: The liver is normal in size, shape, and attenuation. No focal hepatic lesion or biliary ductal dilatation is present. The gallbladder is unremarkable with no evidence of radiopaque gallstones, gallbladder wall thickening, or obvious pericholecystic inflammatory changes.? PANCREAS: Unremarkable.? SPLEEN: Mildly enlarged measuring up to 14.3 cm, unchanged when compared to the prior examination.? ADRENAL GLANDS: Unremarkable.? KIDNEYS AND URETERS: The kidneys are normal in size, shape, and attenuation. Right lower pole 0.3 cm nonobstructing renal stone, unchanged. No additional renal or ureteral stone. No hydronephrosis or hydroureter. There is mild right perinephric stranding and minimal left perinephric stranding, new when compared to the prior examination. Findings could represent pyelonephritis in the appropriate clinical setting. Appears to be minimal enhancement within the wall of the right and left renal pelvis, new/increased when compared to the prior examination.? BLADDER: Nondistended.? GASTROINTESTINAL TRACT: The small and large bowel are unremarkable. No small or large bowel traction. No bowel wall thickening or inflammatory change. The appendix is unremarkable. PERITONEAL CAVITY: No intra-abdominal free air or free fluid. No intra-abdominal mass or organized fluid collection/abscess formation. ABDOMINAL WALL: No significant hernia is appreciated.? LYMPH NODES: No lymphadenopathy. VASCULAR: Unremarkable. PELVIC VISCERA: IUD within the uterus.? OSSEOUS STRUCTURES: Unremarkable.? CT/CT abdomen pelvis w IV con IMPRESSION: 1.? Mild right and minimal left perinephric stranding, new when compared to the prior examination. There appears to be minimal enhancement within the wall of the right and left renal pelvis, new/increased when compared to the prior examination. Findings could represent pyelonephritis in the appropriate clinical setting. ? 2.? Stable right lower pole 0.3 cm nonobstructing renal stone. No additional renal or ureteral stone. No hydronephrosis or hydroureter. ? 3.? No bowel wall thickening or inflammatory change. No small or large bowel obstruction. Unremarkable appendix. ? 4.? No intra-abdominal mass, lymphadenopathy, or ascites. ? Fleischner guidelines were followed. External Record Review External record reviewed: Outpatient record and Prior outpatient labs Prescription Management I considered prescription management with: Pain Medication and Antibiotic Critical Care Time Critical Care Time Critical Care Time: Yes Total Critical Care Time: 45 Attestation: I have personally provided critical care time exclusive of time spent on separately billable procedures. Time includes review of laboratory data, radiology results, discussion with consultants, and monitoring for potential decompensation. Interventions were performed as documented. Discharge Plan Discharge Clinical Impression: Pyelonephritis, Kidney stone, Sepsis Patient Disposition: Admitted As Inpatient
--- NOTE | 2022-06-04 18:21 | ECG_ITS ---
Test Reason : WEAK Blood Pressure : / mmHG Vent. Rate : 105 BPM Atrial Rate : 105 BPM P-R Int : 136 ms QRS Dur : 092 ms QT Int : 326 ms P-R-T Axes : 045 063 027 degrees QTc Int : 430 ms Sinus tachycardia Otherwise normal ECG No previous ECGs available Referred By: Roxanna Baca Electronically Signed By:REGINALDO PAGE
[2022-06-04 18:29] LABS: Hematocrit 37.9 % (37.0-47.0); Imm Gran Pct Auto 0.4 % (0.0-0.4); Lymphocytes Percent Auto 9.2 % (20-40); Mean Corpuscular HGB Conc 34.3 g/dl (31.0-35.0); Mean Corpuscular Hemoglobin 30.6 pg (27.0-33.0); Mean Corpuscular Volume 89.2 fL (80.0-98.0); Mean Platelet Volume 8.8 fL (9.4-12.3); Monocytes Percent Auto 13.4 % (2-11); Platelet Count 336 X10*3/uL (160-400); Red Blood Count 4.25 X10*6/uL (4.20-5.50); Red Cell Distribution Width 11.8 % (11.0-16.0); White Blood Count 14.7 X10*3/uL (4.8-10.8)
[2022-06-04 18:30] LABS: Basophils Percent Auto 0.3 % (0-2); Eosinophils Absolute Auto 0.1 X10*3/uL (0.0-0.4); Eosinophils Percent Auto 0.7 % (0-4); Imm Gran Abs Auto 0.06 X10*3/uL (0.00-0.03); Lymphocytes Absolute Auto 1.4 X10*3/uL (1.2-4.9); MANUAL DIFF FLAG SCAN; Neutrophils Absolute Auto 11.2 x10*3/uL (2.0-8.3); SCAN SMEAR FLAG 1
[2022-06-04 18:34] VITALS: TEMP 39.3
[2022-06-04] MEDS: 0.9 % Sodium Chloride 1,000 ML 999 ML IV ×2 (18:34→21:26)
[2022-06-04 18:44] LABS: Anion Gap 18 (12-20); Blood Urea Nitrogen 15 mg/dL (9-16); Calcium 9.2 mg/dL (8.4-10.2); Carbon Dioxide 23 mmol/L (22-29); Chloride 103 mmol/L (96-108); Creatinine Clr Calc Pharmacy 127.7; Estimated Glomerular Filt Rate > 60; Glucose Random 148 mg/dL (60-115); Potassium 3.6 mmol/L (3.3-5.1); Sodium 140 mmol/L (135-145)
[2022-06-04] MEDS: cefTRIAXone sodium 1 GM in 0.9 % Sodium Chloride 50 ML IV (18:49)
[2022-06-04 18:58] LABS: SLIDE REVIEW VERIFIED
[2022-06-04 19:09] LABS: Influenza A PCR NEGATIVE (Negative); Influenza B PCR NEGATIVE (Negative); Resp Syncy Virus RNA Qual PCR NEGATIVE (Negative); SARS COV2 PCR INHOUSE NEGATIVE (Negative)
[2022-06-04 19:09] LABS: Troponin-I High Sensitivity < 3.5 ng/L (<3.5-17.0)
[2022-06-04 19:21] LABS: D Dimer High Sensitivity 307 NG/ML
[2022-06-04 19:24] LABS: Appearance Urine Cloudy; Color Urine Yellow; Glucose Urine UA Negative (Negative); Leukocyte Esterase Urine Moderate (2+) (Negative); Nitrite Urine Negative (Negative); PH 5.5 (5.0-9.0); UMIC TRIGGER UACC YES; Urine Blood Small (1+) (Negative); Urine Ketones Trace mg/dL (Negative); Urine Protein 30 (1+) mg/dL (Neg-Trace)
--- NOTE | 2022-06-04 19:24 | PC.NURSE ---
this rn assumed care of pt @ 1900. pt able to provide urine sample. sample sent down to lab at this time. pt ambulates independently to bathroom
[2022-06-04 19:26] LABS: UPreg QC Valid YES; Urine Pregnancy NEGATIVE (NEGATIVE)
[2022-06-04 19:45] VITALS: BP 121/70; PULSE 93; RESP 16; TEMP 38.8; O2SAT 97
[2022-06-04 19:47] LABS: Bacteria Urine None Seen (None Seen); Hyaline Casts Urine 0-2 /LPF (0-2); UACC Culture Trigger YES; WBC Urine >50 /HPF (0-5)
[2022-06-04 20:19] VITALS: BP 112/73; PULSE 93; RESP 17
--- NOTE | 2022-06-04 20:41 | PM.IMHP ---
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 Patient states it started 1 day prior to presentation. She has been having associated right-sided back pain and generalized abdominal discomfort. Endorses nausea but no vomiting. Had a kidney stone 7 years ago. Patient has been taking Tylenol every 4-6 hours since the fever started. Admits urinary urgency and bladder spasms . Patient denies chest discomfort, palpitations, shortness of breath, vomiting, changes in bowel habits In the emergency department, patient was found to be septic and imaging was concerning for pyelonephritis Review of Systems Constitutional: Constitutional: Reports chills, Reports fever(s) and Reports weakness Cardiovascular: Cardiovascular: Reports no additional cardiovascular complaints Respiratory: Respiratory: Reports no additional respiratory complaints Gastrointestinal: Gastrointestinal: Reports abdominal pain Genitourinary: Genitourinary: Reports urinary urgency Neurologic: Reports system reviewed and no additional complaints, except as documented and Reports weakness [facility] Medical History Mood disorder Pertinent family history: No family history of CAD Social History Alcohol intake: current Alcohol intake frequency: holidays/special occasions only Advance Directives: No Advance Directives Information Provided: No Meds Allergies Allergy/AdvReac Type Severity Reaction Status Date / Time No Known Allergies Allergy Verified 07/12/21 09:11 Active Medications: Current Medications Acetaminophen (Acetaminophen 325 Mg Tablet) 650 mg PO Q6H PRN PRN Reason: Pain, Mild (Pain Scale 1-3) Enoxaparin Sodium (Enoxaparin Sodium 40 Mg/0.4 Ml Syringe) 40 mg SUBCUT Q24H SILVERIO Melatonin (Melatonin 3 Mg Tablet) 6 mg PO BEDTIME PRN PRN Reason: Insomnia Morphine Sulfate (Morphine Sulfate 4 Mg/Ml Cartridge) 4 mg IVPUSH Q4H PRN; Protocol PRN Reason: Pain, Severe (Pain Scale 7-10) Ondansetron HCl (Ondansetron Hcl 4 Mg/2 Ml Vial) 4 mg IVPUSH Q8H PRN PRN Reason: Nausea and Vomiting Sodium Chloride (0.9 % Sodium Chloride Flush 3 Ml Syringe) 3 ml IVFLUSH QSHIFT [facility] Home Medications Medication Instructions Recorded Confirmed Last Taken Type albuterol sulfate 90 mcg/actuation 2 puff inhalation Q6H PRN wheezing 07/12/21 07/12/21 Unknown History aerosol inhaler buspirone 30 mg tablet 30 mg PO BID 07/12/21 07/12/21 Unknown History fluoxetine 40 mg capsule 40 mg PO DAILY 07/12/21 07/12/21 Unknown History lamotrigine 250 mg tablet,extended 250 mg PO DAILY 07/12/21 07/12/21 Unknown History release 24 hr Physical Exam Vital Signs and Narrative: Vital Signs: Last Vital Signs Temp 101.8 F H 06/04/22 19:45 Pulse 93 06/04/22 20:19 Resp 17 06/04/22 20:19 BP 112/73 06/04/22 20:19 Pulse Ox 97 06/04/22 19:45 O2 Del Method 06/04/22 19:45 BMI result Body Mass Index 36.9 Middle-aged female lying in bed in no distress Neck supple, no JVD Regular rate and rhythm, S1-S2 heard Regular breath sounds bilaterally, no wheezing or crackles appreciated Abdomen with right-sided CVA tenderness, no guarding, no rigidity, no rebound tenderness Patient is awake, alert and oriented to self, place, time and person ; no focal motor deficit Psych: Normal mood No pedal edema Results Labs 06/04/22 18:22 06/04/22 18:22 Labs: Laboratory Results - last 24 hr 06/04/22 06/04/22 06/04/22 18:22 18:22 18:22 MCV 89.2 MCH 30.6 MCHC 34.3 RDW 11.8 Plt Count 336 MPV 8.8 L Immature Gran % (Auto) 0.4 Neut % (Auto) 76.0 H Lymph % (Auto) 9.2 L [place] % (Auto) 13.4 H Eos % (Auto) 0.7 Baso % (Auto) 0.3 Lymph # (Auto) 1.4 [place] # (Auto) 2.0 H Eos # (Auto) 0.1 Baso # (Auto) 0.0 Abs Immat Gran (auto) 0.06 H Absolute Neuts (auto) 11.2 H Absolute Nucleated RBC 0.000 Nucleated RBC % (auto) 0.0 Smear Tech's Comments VERIFIED D-Dimer High Sensitivty Anion Gap 18 Estim Creat Clear Calc 127.7 Estimated GFR > 60 Random Glucose 148 H Lactic Acid Calcium 9.2 Troponin I High Sens Urine Color Urine Appearance Urine pH Ur Specific [place] Urine Protein Urine Glucose (UA) Urine Ketones Urine Blood Urine Nitrite Ur Leukocyte Esterase Urine RBC Urine WBC Ur Squamous Epith Cells Urine Bacteria Hyaline Casts Urine Test Influenza Type A (PCR) NEGATIVE Influenza Type B (PCR) NEGATIVE RSV RNA Qual (PCR) NEGATIVE SARS-CoV-2 RNA (RT-PCR) NEGATIVE 06/04/22 06/04/22 06/04/22 18:32 18:32 18:32 MCV MCH MCHC RDW Plt Count MPV Immature Gran % (Auto) Neut % (Auto) Lymph % (Auto) [place] % (Auto) Eos % (Auto) Baso % (Auto) Lymph # (Auto) [place] # (Auto) Eos # (Auto) Baso # (Auto) Abs Immat Gran (auto) Absolute Neuts (auto) Absolute Nucleated RBC Nucleated RBC % (auto) Smear Tech's Comments D-Dimer High Sensitivty 307 Anion Gap Estim Creat Clear Calc Estimated GFR Random Glucose Lactic Acid 1.0 Calcium Troponin I High Sens < 3.5 Urine Color Urine Appearance Urine pH Ur Specific [place] Urine Protein Urine Glucose (UA) Urine Ketones Urine Blood Urine Nitrite Ur Leukocyte Esterase Urine RBC Urine WBC Ur Squamous Epith Cells Urine Bacteria Hyaline Casts Urine Test Influenza Type A (PCR) Influenza Type B (PCR) RSV RNA Qual (PCR) SARS-CoV-2 RNA (RT-PCR) 06/04/22 06/04/22 19:17 19:17 MCV MCH MCHC RDW Plt Count MPV Immature Gran % (Auto) Neut % (Auto) Lymph % (Auto) [place] % (Auto) Eos % (Auto) Baso % (Auto) Lymph # (Auto) [place] # (Auto) Eos # (Auto) Baso # (Auto) Abs Immat Gran (auto) Absolute Neuts (auto) Absolute Nucleated RBC Nucleated RBC % (auto) Smear Tech's Comments D-Dimer High Sensitivty Anion Gap Estim Creat Clear Calc Estimated GFR Random Glucose Lactic Acid Calcium Troponin I High Sens Urine Color Yellow Urine Appearance Cloudy Urine pH 5.5 Ur Specific [place] 1.020 Urine Protein 30 (1+) H Urine Glucose (UA) Negative Urine Ketones Trace Urine Blood Small (1+) H Urine Nitrite Negative Ur Leukocyte Esterase Moderate (2+) H Urine RBC 3-5 H Urine WBC >50 H Ur Squamous Epith Cells 3-5 Urine Bacteria None Seen Hyaline Casts 0-2 Urine Test NEGATIVE Influenza Type A (PCR) Influenza Type B (PCR) RSV RNA Qual (PCR) SARS-CoV-2 RNA (RT-PCR) Imaging Radiologist's Impressions: Impressions Abdomen/Pelvis CT 06/04/22 19:46 IMPRESSION: 1. Mild right and minimal left perinephric stranding, new when compared to the prior examination. There appears to be minimal enhancement within the wall of the right and left renal pelvis, new/increased when compared to the prior examination. Findings could represent pyelonephritis in the appropriate clinical setting. 2. Stable right lower pole 0.3 cm nonobstructing renal stone. No additional renal or ureteral stone. No hydronephrosis or hydroureter. 3. No bowel wall thickening or inflammatory change. No small or large bowel obstruction. Unremarkable appendix. 4. No intra-abdominal mass, lymphadenopathy, or ascites. Fleischner guidelines were followed. 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 #. Sepsis due to pyelonephritis: Will admit and initiate empiric IV Rocephin. Blood cultures and lactic acid obtain. Resuscitated with IV crystalloids in the ER. Urine culture pending #. Mood disorder: Continue BuSpar, Prozac and lamotrigine Med rec pending DVT prophylaxis: Lovenox 40 mg daily Full code Regular diet Admit as inpatient and will require two night minimum hospital stay for IV antibiotics Time Spent With Patient Time: Total time managing care of this patient today ____ minutes. Quality Stroke Does the patient have a stroke diagnosis?: No VTE Prior VTE?: No VTE Risk Level:: Medical - moderate - high VTE Device Contraindication: Treatment Not Indicated VTE Drug Contraindication: N/A - Med Ordered
[2022-06-04] MEDS: Morphine Sulfate 4 MG/ML CARTRIDGE IVPUSH (20:45)
[2022-06-04] MEDS: Acetaminophen 325 MG TABLET 650 MG PO (20:45)
[2022-06-04] MEDS: ondansetron HCL 4 MG/2 ML VIAL IVPUSH (20:46)
[2022-06-04] MEDS: FLUoxetine HCl 20 MG CAPSULE 40 MG PO (21:26)
[2022-06-04] MEDS: busPIRone HCl 10 MG TABLET 30 MG PO (21:26)
[2022-06-04] MEDS: Enoxaparin Sodium 40 MG/0.4 ML SYRINGE SUBCUT (21:26)
[2022-06-04] MEDS: lamoTRIgine 25 MG TABLET 250 MG PO (21:34)
--- NOTE | 2022-06-04 21:47 | PC.NURSE ---
pt medicated according to mar. pt provided with food at this time. resting on stretcher no new needs
[2022-06-04 23:37] VITALS: TEMP 39.4
[2022-06-05] VITALS (7 sets, daily range): BP systolic 118–152; BP diastolic 69–83; PULSE 74–94; RESP 15–24; TEMP 36.3–39; O2SAT 95–99
--- NOTE | 2022-06-05 00:05 | PC.NURSE ---
pt sleeping on L side on stretcher at this time
[2022-06-05] MEDS: 0.9 % Sodium Chloride Flush 3 ML SYRINGE IVFLUSH (02:07)
[2022-06-05] MEDS: Morphine Sulfate 4 MG/ML CARTRIDGE IVPUSH ×2 (02:20→15:48)
[2022-06-05] MEDS: Acetaminophen 325 MG TABLET 975 MG PO (02:20)
[2022-06-05] MEDS: ondansetron HCL 4 MG/2 ML VIAL IVPUSH ×4 (02:20→17:22)
[2022-06-05 05:42] LABS: Basophils Absolute Auto 0.1 X10*3/uL (0.0-0.2); Basophils Percent Auto 0.3 % (0-2); Eosinophils Percent Auto 0.2 % (0-4); Hematocrit 34.2 % (37.0-47.0); Hemoglobin 11.7 g/dl (12.0-16.0); Imm Gran Abs Auto 0.09 X10*3/uL (0.00-0.03); Imm Gran Pct Auto 0.5 % (0.0-0.4); Lymphocytes Absolute Auto 1.8 X10*3/uL (1.2-4.9); Lymphocytes Percent Auto 9.9 % (20-40); MANUAL DIFF FLAG SCAN; Mean Corpuscular HGB Conc 34.2 g/dl (31.0-35.0); Mean Corpuscular Hemoglobin 30.3 pg (27.0-33.0); Mean Corpuscular Volume 88.6 fL (80.0-98.0); Mean Platelet Volume 8.9 fL (9.4-12.3); Monocytes Absolute Auto 2.2 X10*3/uL (0.1-1.2); Monocytes Percent Auto 12.6 % (2-11); Neutrophils Absolute Auto 13.5 x10*3/uL (2.0-8.3); Neutrophils Percent Auto 76.5 % (45-73); Platelet Count 309 X10*3/uL (160-400); Red Blood Count 3.86 X10*6/uL (4.20-5.50); Red Cell Distribution Width 11.9 % (11.0-16.0); SCAN SMEAR FLAG 1; White Blood Count 17.6 X10*3/uL (4.8-10.8)
[2022-06-05 05:58] LABS: Anion Gap 14 (12-20); Blood Urea Nitrogen 9 mg/dL (9-16); Calcium 8.6 mg/dL (8.4-10.2); Carbon Dioxide 21 mmol/L (22-29); Chloride 106 mmol/L (96-108); Creatinine Clr Calc Pharmacy 165.5; Estimated Glomerular Filt Rate > 60; Glucose Random 124 mg/dL (60-115); Potassium 4.1 mmol/L (3.3-5.1); Sodium 137 mmol/L (135-145)
[2022-06-05 05:59] LABS: SLIDE REVIEW VERIFIED
[2022-06-05] MEDS: Acetaminophen 1,000 MG/100 ML PIGGYBACK 400 MG IV (06:24)
[2022-06-05] MEDS: Ibuprofen 600 MG TABLET PO (06:24)
--- NOTE | 2022-06-05 06:59 | PC.NURSE ---
late entry- pt began vomiting. states sudden wave of nausea. this rn contacted hospitalist dr schmitt at this time. pt reports feeling better after episode of vomiting. pt medicated according to mar. no new needs at this time
--- NOTE | 2022-06-05 07:46 | PHA.MEDREC ---
Pharmacy Consult ? Medication Reconciliation Pharmacy has completed the medication reconciliation. Patient accessed medication list on phone and completed med rec from that information.
--- NOTE | 2022-06-05 14:57 | P.PNIM_ITS ---
Subjective Subjective Date of Service: 06/05/22 Interval History: febrile to 102 this a.m.. States pain control adequate however still feels ( lousy) Review of Systems denies chest pain Denies shortness of breath Denies nausea vomiting diarrhea Admits fever chills Admits flank pain Physical Exam Vital Signs: Vital Signs: Last Vital Signs Temp 97.3 F 06/05/22 14:40 Pulse 74 06/05/22 14:40 Resp 24 H 06/05/22 14:40 BP 118/75 06/05/22 14:40 Pulse Ox 99 06/05/22 14:40 O2 Del Method 06/05/22 14:40 BMI result Body Mass Index 36.9 Const: Other: awake alert oriented x3 no acute distress Resp: Other: clear to auscultation bilaterally. No rales rhonchi or wheezes Cardio: Other: no S4; positive S1-S2; no S3 murmurs rubs or gallops GI: Other: soft nontender nondistended normoactive bowel sounds Back/Spine/Pelvis: Other: right CVA tenderness Extrem: Other: no edema bilaterally Objective Data Active Medications Acetaminophen (Acetaminophen 325 Mg Tablet) 650 mg PO Q6H PRN PRN Reason: Pain, Mild (Pain Scale 1-3) Enoxaparin Sodium (Enoxaparin Sodium 40 Mg/0.4 Ml Syringe) 40 mg SUBCUT Q24H [facility] Last Admin: 06/04/22 21:26 Dose: 40 mg Documented By: SILVIA Ceftriaxone Sodium 2 gm/ (Sodium Chloride) 50 mls @ 100 mls/hr IV Q24H [facility] Melatonin (Melatonin 3 Mg Tablet) 6 mg PO BEDTIME PRN PRN Reason: Insomnia Morphine Sulfate (Morphine Sulfate 4 Mg/Ml Cartridge) 4 mg IVPUSH Q4H PRN; Protocol PRN Reason: Pain, Severe (Pain Scale 7-10) Last Admin: 06/05/22 02:20 Dose: 4 mg Documented By: SILVIA Ondansetron HCl (Ondansetron Hcl 4 Mg/2 Ml Vial) 4 mg IVPUSH Q8H PRN PRN Reason: Nausea and Vomiting Last Admin: 06/05/22 02:20 Dose: 4 mg Documented By: SILVIA Sodium Chloride (0.9 % Sodium Chloride Flush 3 Ml Syringe) 3 ml IVFLUSH QSHIFT [facility] Last Admin: 06/05/22 07:24 Dose: Not Given Documented By: ROLLY Non-Admin Reason: IV Running Labs 06/05/22 05:21 06/05/22 05:21 Labs: Laboratory Results - last 24 hr 06/04/22 06/04/22 06/04/22 18:22 18:22 18:22 MCV 89.2 MCH 30.6 MCHC 34.3 RDW 11.8 Plt Count 336 MPV 8.8 L Immature Gran % (Auto) 0.4 Neut % (Auto) 76.0 H Lymph % (Auto) 9.2 L [place] % (Auto) 13.4 H Eos % (Auto) 0.7 Baso % (Auto) 0.3 Lymph # (Auto) 1.4 [place] # (Auto) 2.0 H Eos # (Auto) 0.1 Baso # (Auto) 0.0 Abs Immat Gran (auto) 0.06 H Absolute Neuts (auto) 11.2 H Absolute Nucleated RBC 0.000 Nucleated RBC % (auto) 0.0 Smear Tech's Comments VERIFIED D-Dimer High Sensitivty Anion Gap 18 Estim Creat Clear Calc 127.7 Estimated GFR > 60 Random Glucose 148 H Lactic Acid Calcium 9.2 Troponin I High Sens Urine Color Urine Appearance Urine pH Ur Specific [place] Urine Protein Urine Glucose (UA) Urine Ketones Urine Blood Urine Nitrite Ur Leukocyte Esterase Urine RBC Urine WBC Ur Squamous Epith Cells Urine Bacteria Hyaline Casts Urine Test Influenza Type A (PCR) NEGATIVE Influenza Type B (PCR) NEGATIVE RSV RNA Qual (PCR) NEGATIVE SARS-CoV-2 RNA (RT-PCR) NEGATIVE 06/04/22 06/04/22 06/04/22 18:32 18:32 18:32 MCV MCH MCHC RDW Plt Count MPV Immature Gran % (Auto) Neut % (Auto) Lymph % (Auto) [place] % (Auto) Eos % (Auto) Baso % (Auto) Lymph # (Auto) [place] # (Auto) Eos # (Auto) Baso # (Auto) Abs Immat Gran (auto) Absolute Neuts (auto) Absolute Nucleated RBC Nucleated RBC % (auto) Smear Tech's Comments D-Dimer High Sensitivty 307 Anion Gap Estim Creat Clear Calc Estimated GFR Random Glucose Lactic Acid 1.0 Calcium Troponin I High Sens < 3.5 Urine Color Urine Appearance Urine pH Ur Specific [place] Urine Protein Urine Glucose (UA) Urine Ketones Urine Blood Urine Nitrite Ur Leukocyte Esterase Urine RBC Urine WBC Ur Squamous Epith Cells Urine Bacteria Hyaline Casts Urine Test Influenza Type A (PCR) Influenza Type B (PCR) RSV RNA Qual (PCR) SARS-CoV-2 RNA (RT-PCR) 06/04/22 06/04/22 06/05/22 19:17 19:17 05:21 MCV 88.6 MCH 30.3 MCHC 34.2 RDW 11.9 Plt Count 309 MPV 8.9 L Immature Gran % (Auto) 0.5 H Neut % (Auto) 76.5 H Lymph % (Auto) 9.9 L [place] % (Auto) 12.6 H Eos % (Auto) 0.2 Baso % (Auto) 0.3 Lymph # (Auto) 1.8 [place] # (Auto) 2.2 H Eos # (Auto) 0.0 Baso # (Auto) 0.1 Abs Immat Gran (auto) 0.09 H Absolute Neuts (auto) 13.5 H Absolute Nucleated RBC 0.000 Nucleated RBC % (auto) 0.0 Smear Tech's Comments VERIFIED D-Dimer High Sensitivty Anion Gap Estim Creat Clear Calc Estimated GFR Random Glucose Lactic Acid Calcium Troponin I High Sens Urine Color Yellow Urine Appearance Cloudy Urine pH 5.5 Ur Specific [place] 1.020 Urine Protein 30 (1+) H Urine Glucose (UA) Negative Urine Ketones Trace Urine Blood Small (1+) H Urine Nitrite Negative Ur Leukocyte Esterase Moderate (2+) H Urine RBC 3-5 H Urine WBC >50 H Ur Squamous Epith Cells 3-5 Urine Bacteria None Seen Hyaline Casts 0-2 Urine Test NEGATIVE Influenza Type A (PCR) Influenza Type B (PCR) RSV RNA Qual (PCR) SARS-CoV-2 RNA (RT-PCR) 06/05/22 05:21 MCV MCH MCHC RDW Plt Count MPV Immature Gran % (Auto) Neut % (Auto) Lymph % (Auto) [place] % (Auto) Eos % (Auto) Baso % (Auto) Lymph # (Auto) [place] # (Auto) Eos # (Auto) Baso # (Auto) Abs Immat Gran (auto) Absolute Neuts (auto) Absolute Nucleated RBC Nucleated RBC % (auto) Smear Tech's Comments D-Dimer High Sensitivty Anion Gap 14 Estim Creat Clear Calc 165.5 Estimated GFR > 60 Random Glucose 124 H Lactic Acid Calcium 8.6 D Troponin I High Sens Urine Color Urine Appearance Urine pH Ur Specific [place] Urine Protein Urine Glucose (UA) Urine Ketones Urine Blood Urine Nitrite Ur Leukocyte Esterase Urine RBC Urine WBC Ur Squamous Epith Cells Urine Bacteria Hyaline Casts Urine Test Influenza Type A (PCR) Influenza Type B (PCR) RSV RNA Qual (PCR) SARS-CoV-2 RNA (RT-PCR) Microbiology Microbiology Results: Microbiology 06/04/22 19:48 Urine Culture - Preliminary Urine clean catch - Urine lee top Culture too young to evaluate. 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 Sepsis due to pyelonephritis - increase ceftriaxone to 2 g daily - sepsis resolved; await blood and urine cultures 2. Mood disorder -Continue BuSpar, Prozac and lamotrigine Med rec pending DVT prophylaxis: Lovenox 40 mg daily Full code Regular diet Admit as inpatient and will require two night minimum hospital stay for IV antibiotics Time Spent With Patient Time: Total time managing care of this patient today ____ minutes. Quality Stroke Does the patient have a stroke diagnosis?: No VTE Prior VTE?: No VTE Risk Level:: Medical - moderate - high VTE Device Contraindication: Treatment Not Indicated VTE Drug Contraindication: N/A - Med Ordered
--- NOTE | 2022-06-05 15:42 | PC.NURSE ---
RN to RN report given to Carley.
[2022-06-05] MEDS: cefTRIAXone sodium 2 GM in 0.9 % Sodium Chloride 50 ML IV (15:48)
[2022-06-05] MEDS: Acetaminophen 325 MG TABLET 650 MG PO (19:10)
--- NOTE | 2022-06-05 20:38 | PC.NURSE ---
Addendum entered by Carley Angela RN 06/05/22 20:41: Ibuprofen 400 mg po ordered Original Note: Rectal temp 101.[address] Duvall, Per : apply ice packs
[2022-06-05] MEDS: Ibuprofen 400 MG TABLET PO (21:08)
[2022-06-05] MEDS: busPIRone HCl 10 MG TABLET 30 MG PO (21:51)
[2022-06-05] MEDS: FLUoxetine HCl 20 MG CAPSULE 40 MG PO (21:51)
[2022-06-06 03:53] VITALS: BP 124/82; PULSE 79; RESP 18; TEMP 36.2; O2SAT 99
[2022-06-06] MEDS: Morphine Sulfate 4 MG/ML CARTRIDGE IVPUSH (05:27)
[2022-06-06] MEDS: 0.9 % Sodium Chloride Flush 3 ML SYRINGE IVFLUSH ×2 (07:42→21:06)
[2022-06-06] MEDS: Acetaminophen 325 MG TABLET 650 MG PO ×3 (07:43→19:11)
[2022-06-06 08:00] VITALS: BP 123/77; PULSE 69; RESP 18; TEMP 37.1; O2SAT 100
[2022-06-06 09:11] LABS: MANUAL DIFF FLAG NO
[2022-06-06 09:13] LABS: Basophils Absolute Auto 0.1 X10*3/uL (0.0-0.2); Basophils Percent Auto 0.4 % (0-2); Eosinophils Absolute Auto 0.3 X10*3/uL (0.0-0.4); Eosinophils Percent Auto 2.2 % (0-4); Hematocrit 35.4 % (37.0-47.0); Hemoglobin 12.1 g/dl (12.0-16.0); Imm Gran Abs Auto 0.08 X10*3/uL (0.00-0.03); Imm Gran Pct Auto 0.7 % (0.0-0.4); Lymphocytes Absolute Auto 2.3 X10*3/uL (1.2-4.9); Lymphocytes Percent Auto 19.4 % (20-40); Mean Corpuscular HGB Conc 34.2 g/dl (31.0-35.0); Mean Corpuscular Hemoglobin 30.3 pg (27.0-33.0); Mean Corpuscular Volume 88.7 fL (80.0-98.0); Mean Platelet Volume 8.7 fL (9.4-12.3); Monocytes Absolute Auto 0.7 X10*3/uL (0.1-1.2); Monocytes Percent Auto 5.8 % (2-11); Neutrophils Absolute Auto 8.6 x10*3/uL (2.0-8.3); Neutrophils Percent Auto 71.5 % (45-73); Platelet Count 323 X10*3/uL (160-400); Red Blood Count 3.99 X10*6/uL (4.20-5.50); Red Cell Distribution Width 11.9 % (11.0-16.0)
[2022-06-06 09:38] LABS: Alanine Aminotransferase 59 U/L (0-31); Albumin Level 3.9 g/dL (3.5-5.0); Alkaline Phosphatase 60 U/L (39-117); Aspartate Amino Transferase 25 U/L (5-31); Bilirubin Total 0.9 mg/dL (0.0-1.0); Blood Urea Nitrogen 9 mg/dL (9-16); Calcium 8.9 mg/dL (8.4-10.2); Creatinine Clr Calc Pharmacy 160.9; Estimated Glomerular Filt Rate > 60; Glucose Fasting 120 mg/dL (60-99); Total Protein 7.1 g/dL (6.5-8.0)
[2022-06-06 09:45] LABS: Anion Gap 16 (12-20); Carbon Dioxide 25 mmol/L (22-29); Chloride 104 mmol/L (96-108); Potassium 3.8 mmol/L (3.3-5.1); Sodium 141 mmol/L (135-145)
--- NOTE | 2022-06-06 11:59 | HO.PM.IMPN ---
Subjective Subjective Date of Service: 06/06/22 Interval History: continues to improve; T-max 101.7 degrees. Less CVA tenderness Review of Systems denies chest pain Denies shortness of breath Denies nausea vomiting diarrhea Denies fever chills Physical Exam Vital Signs: Vital Signs: Last Vital Signs Temp 98.7 F 06/06/22 08:00 Pulse 69 06/06/22 08:00 Resp 18 06/06/22 08:00 BP 123/77 06/06/22 08:00 Pulse Ox 100 06/06/22 08:00 O2 Del Method 06/06/22 08:00 BMI result Body Mass Index 36.9 Const: Other: awake alert oriented x3 no acute distress Resp: Other: clear to auscultation bilaterally. No rales rhonchi or wheezes Cardio: Other: no S4; positive S1-S2; no S3 murmurs rubs or gallops GI: Other: soft nontender nondistended normoactive bowel sounds Back/Spine/Pelvis: Other: right CVA tenderness Extrem: Other: no edema bilaterally Objective Data Active Medications Acetaminophen (Acetaminophen 325 Mg Tablet) 650 mg PO Q6H PRN PRN Reason: Pain, Mild (Pain Scale 1-3) Last Admin: 06/06/22 07:43 Dose: 650 mg Documented By: SHASTA Albuterol Sulfate (Albuterol Sulfate 90 Mcg 8 Gm Inhaler) 2 puff INHALE Q6H PRN PRN Reason: wheezing Buspirone HCl (Buspirone Hcl 10 Mg Tablet) 30 mg PO BEDTIME [facility] Last Admin: 06/05/22 21:51 Dose: 30 mg Documented By: GAL Enoxaparin Sodium (Enoxaparin Sodium 40 Mg/0.4 Ml Syringe) 40 mg SUBCUT Q24H [facility] Last Admin: 06/05/22 21:53 Dose: Not Given Documented By: GAL Non-Admin Reason: Patient Refused Fluoxetine HCl (Fluoxetine Hcl 20 Mg Capsule) 40 mg PO BEDTIME [facility] Last Admin: 06/05/22 21:51 Dose: 40 mg Documented By: GAL Ceftriaxone Sodium 2 gm/ (Sodium Chloride) 50 mls @ 100 mls/hr IV Q24H [facility] Last Infusion: 06/05/22 16:19 Dose: 0 mls/hr Documented By: HO.NEWMANN Lactulose (Lactulose 20 Gm/30 Ml Solution) 20 gm PO Q24H PRN PRN Reason: Constipation Melatonin (Melatonin 3 Mg Tablet) 6 mg PO BEDTIME PRN PRN Reason: Insomnia Morphine Sulfate (Morphine Sulfate 4 Mg/Ml Cartridge) 4 mg IVPUSH Q4H PRN; Protocol PRN Reason: Pain, Severe (Pain Scale 7-10) Last Admin: 06/06/22 05:27 Dose: 4 mg Documented By: JYOTHI Pt Own Med ( Lamotrigine 250 Mg Tablet Extended Release 24hr) 250 mg PO BEDTIME [facility] Last Admin: 06/05/22 21:50 Dose: 250 mg Documented By: GAL Ondansetron HCl (Ondansetron Hcl 4 Mg/2 Ml Vial) 4 mg IVPUSH Q8H PRN PRN Reason: Nausea and Vomiting Last Admin: 06/05/22 15:00 Dose: 4 mg Documented By: ROLLY Sodium Chloride (0.9 % Sodium Chloride Flush 3 Ml Syringe) 3 ml IVFLUSH [facility] Last Admin: 06/06/22 07:42 Dose: 3 ml Documented By: JNEIOS Labs 06/06/22 09:06 06/06/22 09:06 Labs: Laboratory Results - last 24 hr 06/06/22 06/06/22 09:06 09:06 MCV 88.7 MCH 30.3 MCHC 34.2 RDW 11.9 Plt Count 323 MPV 8.7 L Immature Gran % (Auto) 0.7 H Neut % (Auto) 71.5 Lymph % (Auto) 19.4 L [place] % (Auto) 5.8 Eos % (Auto) 2.2 Baso % (Auto) 0.4 Lymph # (Auto) 2.3 [place] # (Auto) 0.7 Eos # (Auto) 0.3 Baso # (Auto) 0.1 Abs Immat Gran (auto) 0.08 H Absolute Neuts (auto) 8.6 H Absolute Nucleated RBC 0.000 Nucleated RBC % (auto) 0.0 Anion Gap 16 Estim Creat Clear Calc 160.9 Estimated GFR > 60 Fasting Glucose 120 H Calcium 8.9 Total Bilirubin 0.9 AST 25 ALT 59 H Alkaline Phosphatase 60 Total Protein 7.1 Albumin 3.9 Microbiology Microbiology Results: Microbiology 06/04/22 19:48 Urine Culture - Final Urine clean catch - Urine lee top 06/04/22 18:48 Blood Culture - Preliminary Blood - Venous No growth after 24 hours. 06/04/22 18:32 Blood Culture - Preliminary Blood - Venous No growth after 24 hours. 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 Sepsis due to pyelonephritis - ceftriaxone to 2 g daily - sepsis resolved; blood cultures negative times 24 hours; urine culture negative - hopeful DC in a.m. if blood cultures negative in T-max normalized 2. Mood disorder -Continue BuSpar, Prozac and lamotrigine Med rec pending DVT prophylaxis: Lovenox 40 mg daily Full code Regular diet Admit as inpatient and will require two night minimum hospital stay for IV antibiotics Time Spent With Patient Time: Total time managing care of this patient today ____ minutes. Quality Stroke Does the patient have a stroke diagnosis?: No VTE Prior VTE?: No VTE Risk Level:: Medical - moderate - high VTE Device Contraindication: Treatment Not Indicated VTE Drug Contraindication: N/A - Med Ordered
[2022-06-06] MEDS: Lactulose 20 GM/30 ML SOLUTION PO (12:24)
--- NOTE | 2022-06-06 12:37 | MHC.CM.PN ---
[place] [facility] [place] has own ride home will be dcd tomorrow is cb vax x 4 dc plan home no services
[2022-06-06] MEDS: cefTRIAXone sodium 2 GM in 0.9 % Sodium Chloride 50 ML IV (14:36)
[2022-06-06] MEDS: oxyCODONE HCl Immed Release 5 MG TABLET PO (14:37)
[2022-06-06 15:50] VITALS: BP 136/81; PULSE 81; RESP 18; TEMP 36.1; O2SAT 98
[2022-06-06 20:00] VITALS: BP 131/84; PULSE 70; RESP 18; TEMP 36.1; O2SAT 97
[2022-06-06] MEDS: busPIRone HCl 10 MG TABLET 30 MG PO (21:04)
[2022-06-06] MEDS: FLUoxetine HCl 20 MG CAPSULE 40 MG PO (21:05)
[2022-06-07 03:49] VITALS: BP 130/72; PULSE 88; RESP 18; TEMP 35.4; O2SAT 98
[2022-06-07 05:00] VITALS: TEMP 36.9
[2022-06-07 07:30] LABS: HBS Num1 0.08 mIU/mL (0-7.99); HBsAGNum1 0.23 S/CO (0.00-0.99); Hepatitis A Antibody IgM 0.18 Index (0-0.79); Hepatitis B Surface Antigen Negative (Negative); ~HepC Num1 0.23 S/CO (0.00-0.79); ~Hepatitis A Antibody IgM Nonreactive (Nonreactive); ~Hepatitis B Surface Antibody NONREACTIVE (Nonreactive); ~Hepatitis C Antibody Nonreactive (Nonreactive)
[2022-06-07 07:57] VITALS: BP 135/88; PULSE 75; RESP 18; TEMP 36.7; O2SAT 99
[2022-06-07] MEDS: Acetaminophen 325 MG TABLET 650 MG PO (08:50)
[2022-06-07] MEDS: 0.9 % Sodium Chloride Flush 3 ML SYRINGE IVFLUSH (08:51)
--- NOTE | 2022-06-07 09:36 | P.DS_ITS ---
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 Patient states it started 1 day prior to presentation.? She has been h aving associated right-sided back pain and generalized abdominal discomfort.? Endorses nausea but no vomiting.? Had a kidney stone 7 years ago.? Patient has been taking Tylenol every 4-6 hours since the fever started.? Admits urinary urgency and bladder spasms .? Patient denies chest discomfort, palpitations, shortness of breath, vomiting, changes in bowel habits In the emergency department, patient was found to be septic and imaging was concerning for pyelonephritis Hospital Course Patient was admitted to the general medical floor started on ceftriaxone 2 g Q 24 hours. Over the course of the next 48 hours her white count improved and she remained afebrile for 24 hours prior to discharge. Blood in urine cultures have remained negative. At this point she is medically acceptable for discharge to home will to complete a course of oral Ceftin. She is advised she can return to work on without restrictions Time Spent with Patient Time attestation: Total time managing care of this patient today ____ minutes. Discharge coordination time: Greater than 30 minutes Quality: Safe Use of Opioids Does Pt have an Active Cancer Diagnosis on the Problem List?: No Quality: Stroke Does the patient have a stroke diagnosis?: No Physical Exam Vital Signs: Vital Signs: Last Vital Signs Temp 98.0 F 06/07/22 07:57 Pulse 75 06/07/22 07:57 Resp 18 06/07/22 07:57 BP 135/88 06/07/22 07:57 Pulse Ox 99 06/07/22 07:57 O2 Del Method 06/07/22 07:57 BMI result Body Mass Index 36.9 Const: Other: awake alert oriented x3 no acute distress Resp: Other: clear to auscultation bilaterally. No rales rhonchi or wheezes Cardio: Other: no S4; positive S1-S2; no S3 murmurs rubs or gallops GI: Other: soft nontender nondistended normoactive bowel sounds Back/Spine/Pelvis: Other: right CVA tenderness Extrem: Other: no edema bilaterally DS: Data Data Completed and Pending Labs on day of discharge: Laboratory Results - last 24 hr 06/06/22 09:06 Sodium 141 Potassium 3.8 Chloride 104 Carbon Dioxide 25 Anion Gap 16 BUN 9 Creatinine 0.73 Estim Creat Clear Calc 160.9 Estimated GFR > 60 Fasting Glucose 120 H Calcium 8.9 Total Bilirubin 0.9 AST 25 ALT 59 H Alkaline Phosphatase 60 Total Protein 7.1 Albumin 3.9 Preliminary micro results at discharge 06/04/22 18:48 Blood Culture - Preliminary Blood - Venous No growth after 48 hours. 06/04/22 18:32 Blood Culture - Preliminary Blood - Venous No growth after 48 hours. Discharge Plan Discharge Anticipated Discharge Date/Time: 06/07/22 09:32 Patient Disposition: Home, Self-Care Discharge Diagnosis: pyelonephritis Referrals: Physician,Unknown J [Primary Care Provider] - 1 Week Discharge Medications: New cefuroxime axetil 500 mg tablet 500 mg PO BID 10 Days Qty: 20 0RF Continued buspirone 30 mg tablet 30 mg PO BEDTIME lamotrigine 250 mg tablet extended release 24hr 250 mg PO BEDTIME fluoxetine 40 mg capsule 40 mg PO BEDTIME albuterol sulfate 90 mcg/actuation HFA aerosol inhaler 2 puff inhalation Q6H PRN (Reason: wheezing) Discharge Orders: Discharge Order (Routine); Ordered 06/07/22 Ordered By: Claudy Martins Diet: Advance to usual diet Activity on Discharge: As tolerated Stand Alone Forms: Patient Portal Discharge page, Work/School Release Care Plan Goals: complete course of Ceftin as ordered Health Concerns: follow-up with your PCP as scheduled; return for any issues Plan of Treatment: you may return to work 06/11/2022 without restrictions Assessment: see discharge summary
[2022-06-07] MEDS: oxyCODONE HCl Immed Release 5 MG TABLET PO (10:48)
--- NOTE | 2022-06-07 12:09 | P.CDIM_ITS ---
PROVIDER RESPONSE TEXT: To clarify, the appropriate diagnosis supported by the clinical indicators: Acute QUERY TEXT: >>> Provider Instructions - Do not remove this line >>> PHYSICIAN'S DOCUMENTATION REQUEST Date of Query: 06/06/2022 02:08 PM EST Patient Name: Zoie Howard Admit Date: 06/05/2022 Dear Claudy Martins, A review of the medical record indicates additional documentation may be needed. Please review below and update the documentation accordingly. Clinical Indicators: per MD progress note 06/06/22: Sepsis due to pyelonephritis - ceftriaxone to 2 g daily Clarify which of the following accurately represents the acuity of the Pyelonephritis. Possible options might include: <<< Provider Instructions - Do not remove this line <<< Acute Acute on chronic Compensated Chronic stable condition Remission Other (explain) Clinically unable to determine (explain) >>> Contact Info Do not remove this line>>> Thank you, Gilda Soares RN Use of terms such as suspected, likely, concern for, or probable (associated with a specific diagnosi s that is being evaluated, monitored, or treated as if it exists) are acceptable and can be coded in the inpatient se tting, when documented at the time of discharge. Please use your independent medical judgment in providing your response. THIS QUERY IS PART OF THE PERMANENT MEDICAL RECORD <<< Contact Info Do not remove this line <<< >>> Disclaimer - Do no remove this line>>> Extension: [phone] <<< Disclaimer - Do not remove this line<<<
[2022-06-07 15:17] LABS: HBc Num2 1.26 S/CO
[2022-06-07 15:18] LABS: HBc Num3 1.27 S/CO; Hepatitis B Core Antibody Reactive (Nonreactive)
[2022-06-09 06:23] LABS: Hepatitis B Core Antibody IgM NON-REACTIVE (NON-REACTIVE)
== END 2022-06-07 10:50 | disposition home or self-care (01) | DRG 872 ==
LOC: HO.ED 18:54 → HO.EDOVER 20:44 → HO.S3 06-05 15:36
PROVIDERS: Nurse Practitioner Family; Admitting Provider Student in an Organized Health Care Education/Training Program; Emergency Provider Emergency Medicine Emergency Medical Services; Visit Provider Hospitalist
DX: A41.9 Sepsis, unspecified organism (principal); N10 Acute pyelonephritis; F39 Unspecified mood [affective] disorder; Z20.822 Contact with and (suspected) exposure to COVID-19; Z87.442 Personal history of urinary calculi; Z97.5 Presence of (intrauterine) contraceptive device; Z79.899 Other long term (current) drug therapy
CPT/HCPCS: 0241U; 36415; 74177; 80048; 80053; 81001; 81025; 83605; 84484; 85025; 85379; 86704; 86705; 86706; 86709; 86803; 87040; 87086; 87340; 93005; 99285; J0131; J0696; J1650; J2270; J2405

== ENCOUNTER 2022-09-05 06:26 | Emergency (ER) | payer OTHER, SELFPAY ==
[2022-09-05 06:36] VITALS: BP 164/89; PULSE 86; RESP 14; TEMP 36.9; O2SAT 96; BMI 37.2
[2022-09-05 06:48] LABS: Appearance Urine Clear; Color Urine Yellow; Glucose Urine UA Negative (Negative); Leukocyte Esterase Urine Negative (Negative); Nitrite Urine Negative (Negative); PH 5.5 (5.0-9.0); Specific Gravity - Urine >= 1.030 (1.005-1.025); UMIC TRIGGER UACC YES; Urine Blood Moderate (2+) (Negative); Urine Ketones Negative (Negative); Urine Protein Negative (Neg-Trace)
[2022-09-05 06:58] LABS: WBC Urine 0-5 /HPF (0-5)
[2022-09-05 06:59] LABS: Bacteria Urine None Seen (None Seen); Hyaline Casts Urine 0-2 /LPF (0-2); Squamous Epithelial Cell Urine 0-2 /HPF (0-2)
--- NOTE | 2022-09-05 07:09 | ED_ITS ---
HPI - Female Genitourinary General Chief complaint: Urogenital-Female Stated complaint: Kidney Stones? Time Seen by Provider: 09/05/22 07:09 Source: patient Mode of arrival: ambulatory Limitations: no limitations History of Present Illness HPI Narrative: Patient is a 22 year old assigned female at with a history of kidney stones presenting to the emergency department today with a kidney stone. Patient states that she recently had pyelo and is nervous she is developing it again so she would like to have her urine checked. Patient states that she has a urologist referral in [place] but has not followed up yet. Patient states that she is currently taking tamsulosin. Patient denies any dizziness, lightheadedness, abdominal pain, nausea, vomiting, fever, chills, blurry vision, double vision, loss of vision, chest pain, difficulty breathing, shortness of breath, back pain, night sweats, pain with urination, increased urinary frequency, increased urinary urgency, blood in her urine or stool, syncope or a near syncopal episode, recent trauma or falls, bowel incontinence, bladder incontinence, bowel retention, bladder retention, or any other complaints at this time. Severity: mild Vaginal discharge: none Vaginal bleeding: none Exacerbating factors: none Relieving factors: none Associated symptoms: denies other symptoms Treatment prior to arrival: none Related Data Home Medications Medication Instructions Recorded Confirmed albuterol sulfate 90 mcg/actuation 2 puff inhalation Q6H PRN wheezing 07/12/21 06/05/22 aerosol inhaler buspirone 30 mg tablet 30 mg PO BEDTIME 07/12/21 06/05/22 fluoxetine 40 mg capsule 40 mg PO BEDTIME 07/12/21 06/05/22 lamotrigine 250 mg tablet,extended 250 mg PO BEDTIME 07/12/21 06/05/22 release 24 hr Previous Rx's Medication Instructions Recorded cefuroxime axetil 500 mg tablet 500 mg PO BID 10 days #20 tabs 06/07/22 prednisone 20 mg tablet 20 mg PO DAILY 7 days #7 tabs 09/05/22 Allergies Allergy/AdvReac Type Severity Reaction Status Date / Time No Known Allergies Allergy Verified 07/12/21 09:11 Review of Systems Constitutional: Constitutional: Reports no additional constitutional complaints, Denies chills, Denies fever(s) and Denies night sweats Eyes: Eyes: Reports no additional eye complaints, Denies blurry vision, Denies change in vision, Denies diplopia, Denies eye discharge, Denies loss of vision and Denies eye pain ENT: Denies dizziness Cardiovascular: Cardiovascular: Reports no additional cardiovascular complaints, Denies chest pain, Denies lightheadedness, Denies Loss of Consciousness and Denies dyspnea Respiratory: Respiratory: Reports no additional respiratory complaints and Denies dyspnea Gastrointestinal: Gastrointestinal: Reports no additional gastrointestinal complaints, Denies abdominal pain, Denies melena, Denies hematochezia, Denies change in bowel habits and Denies change in stool character Genitourinary: Genitourinary: Denies hematuria, Denies urinary frequency, Denies dysuria, Denies urinary incontinence, Denies urinary hesitancy and Denies urinary urgency Musculoskeletal: Musculoskeletal: Reports no additional musculoskeletal complaints, Denies numbness and Denies tingling Neurologic: Denies dizziness, Denies loss of vision, Denies numbness and Denies tingling Psychiatric: Psychiatric: Reports no additional psychiatric complaints Endocrine: Endocrine: Reports no additional endocrine complaints Hematologic/Lymphatic: Hematologic/Lymphatic: Reports no additional hematologic/lymphatic complaints Allergic/Immunologic: Allergic/Immunologic: Reports no additional allergic/immunologic complaints PMFSH Past Medical History Attestation statement: The following information was validated with the patient. Source: old records reviewed and nursing notes reviewed Medical History Mood disorder Social History Social History Household Members: None Housing: Apartment Alcohol intake: current Alcohol intake frequency: holidays/special occasions only Patient Tobacco Use Status: Never used Tobacco Substance Use Type: Marijuana Advance Directives: No service: No Physical Exam Vital Signs: Vital Signs: Last Vital Signs Temp 98.4 F 09/05/22 06:36 Pulse 86 09/05/22 06:36 Resp 14 09/05/22 06:36 BP 164/89 H 09/05/22 06:36 Pulse Ox 96 09/05/22 06:36 O2 Del Method Room Air 09/05/22 06:36 BMI result Body Mass Index 37.2 Const: General: cooperative, no acute distress, alert and awake Nutritional Appearance: well nourished Orientation/consciousness: patient oriented x3 Limitations: no limitations HEENT: Head: Yes normal to inspection and Yes atraumatic Ears: hearing grossly normal bilaterally and external ears normal General nose exam: Normal external nose present, no nasal discharge noted and no epistaxis Face and sinus: Yes normal facial exam, No abrasion and No laceration Mouth: Normal oral and palatal mucosa present, no drooling and no muffled voice Eyes: General: appearance normal, both eyes and all related structures Periorbital: periorbital findings normal Eyelids: Yes eyelids normal Conjunctivae: conjunctivae normal Pupils: Equal, round and reactive pupils present EOM: EOMs intact bilaterally Neck: Neck: Yes normal visual inspection, Yes full ROM and Yes no lymphadenopathy Chest: Chest palpation & inspection: normal inspection of the chest Resp: Effort & Inspection: normal respiratory effort and able to speak in complete sentences Auscultation: clear to auscultation bilaterally Cardio: Rate: regular rate Rhythm: regular rhythm GI: Inspection: Yes normal to inspection Palpation (GI): Soft to palpation, not firm, nontender and no guarding : General: Yes no CVA tenderness Back/Spine/Pelvis: Back: no CVA tenderness Neuro: General: patient oriented x3 and moves all extremities Cranial nerves: Yes Equal, round and reactive pupils present Cognition (Neuro): normal cognition Motor exam (neuro): 5/5 motor strength present throughout Sensory Exam: Normal double simultaneous stimulation for sensation Coordination: [id number] test normal Extrem: General: Yes normal to inspection, Yes full ROM and Yes capillary refill normal Psych: Appearance: grossly normal Mental Status: mental status grossly normal Affect: normal affect Attitude: cooperative Thought process: Normal thought process present Thought content: Normal thought content present Insight: Good insight present (Psych) Medical Decision Making Medical Decision Making MDM Narrative: Patient is a 22 year old assigned female at with a history of kidney s tones presenting to the emergency department today with a kidney stone. Patient's physical exam was unremarkable. Patient's urine showed no acute process. I explained my physical exam findings as well as all test results to the patient. I answered all questions asked by the patient. I stressed the importance of the patient taking her medication as prescribed. I stressed the importance of the patient following up with her primary care provider and a urologist. I stressed the importance of the patient returning to the emergency department immediately if her symptoms were to worsen or if she were to develop any dizziness, shortness of breath, difficulty breathing, chest pain, blurry vision, loss of vision, nausea, vomiting, abdominal pain, fever, chills, back pain, or any other complaints. Patient verbalized agreement and understanding with this treatment plan and [discharge/transfer/admission]. Differential Diagnosis Differential Diagnoses: The differential diagnosis associated with the presentation includes kidney stone Admission/Observation Consideration of admission/observation: Escalation of care including admission/observation considered Patient would have been admitted to the hospital had his work up had any findings where hospital admission was appropriate. Lab Data MDM Lab Attestation statement: I reviewed the patient's lab results. My interpretation of these studies and their corresponding values is that they are grossly normal. Labs: Lab Results 09/05/22 Range/Units 06:42 Urine Color Yellow Urine Appearance Clear Urine pH 5.5 (5.0-9.0) Ur Specific [place] >= 1.030 H (1.005-1.025) Urine Protein Negative (Neg-Trace) mg/dL Urine Glucose (UA) Negative (Negative) mg/dL Urine Ketones Negative (Negative) mg/dL Urine Blood Moderate (2+) H (Negative) Urine Nitrite Negative (Negative) Ur Leukocyte Esterase Negative (Negative) Urine RBC 3-5 H (0-2) /HPF Urine WBC 0-5 (0-5) /HPF Ur Squamous Epith Cells 0-2 (0-2) /HPF Urine Bacteria None Seen (None Seen) Hyaline Casts 0-2 (0-2) /LPF Discharge Plan Discharge Clinical Impression: Kidney stone Patient Disposition: Home, Self-Care Instructions: Kidney Stones (ED) Additional Instructions: Follow up with your primary care provider and a urologist. Return to the emergency department immediately if your symptoms worsen or if you develop any dizziness, shortness of breath, difficulty breathing, chest pain, blurry vision, loss of vision, nausea, vomiting, abdominal pain, fever, chills, back pain, or any other complaints. Prescriptions: New prednisone 20 mg tablet 20 mg PO DAILY 7 Days Qty: 7 0RF No Action cefuroxime axetil 500 mg tablet 500 mg PO BID 10 Days Qty: 20 0RF buspirone 30 mg tablet 30 mg PO BEDTIME lamotrigine 250 mg tablet extended release 24hr 250 mg PO BEDTIME fluoxetine 40 mg capsule 40 mg PO BEDTIME albuterol sulfate 90 mcg/actuation HFA aerosol inhaler 2 puff inhalation Q6H PRN (Reason: wheezing) [place] [facility] [facility] [place]] (Call to establish and follow up with a primary care provider. If you already have a primary care provider, please follow up with them.) [facility] [facility] [place] Group] (Call to establish and follow up with a primary care provider. If you already have a primary care provider, please follow up with them.) [facility] [place] Group] (Call to establish and follow up with a primary care provider. If you already have a primary care provider, please follow up with them.) [facility] [place] (Call to establish and follow up with a urologist. ) Stand Alone Forms: Work/School Release Interventions: ED Discharge Assessment Last Done: 09/05/22 07:18 Discharge Date/Time: 09/05/22 07:20 Print Language: Mohawk
--- NOTE | 2022-09-05 07:17 | PC.NURSE ---
PT WAS SEEN AND DISCHARGED BY PROVIDER
== END 2022-09-05 07:20 | disposition home or self-care (01) ==
LOC: HO.ED 07:14
PROVIDERS: Emergency Provider Emergency Medicine
DX: N20.0 Calculus of kidney (principal)
CPT/HCPCS: 81001; 99282; 99283

== ENCOUNTER 2022-12-01 09:03 | Outpatient (AMB) | payer OTHER, SELFPAY ==
--- NOTE | 2022-12-01 09:12 | MHC.OFFWIV ---
Intake Vital Signs 12/01/22 09:21 Weight 245 lb BP 120/80 Blood Pressure Location Rt brachial Pulse 76 Pulse Source Pulse Oximeter Temp 96.2 F L Temp Source Temporal Artery Scan Pulse Oximetry (%) 98 Oxygen Delivery Method Room Air Intake Visit Reasons: EP, chest congestion, cough ([phone]) Intake Note: Patient here because she had covid about 2 weeks ago and got over it and then she started with chest congestion, Nausea, cough, sob and headaches. pt mentioned she has a hx of having covid multiple times. Patient Tobacco Use Status: Never used Tobacco Allergies No Known Allergies Allergy (Verified 12/01/22 09:53) Medication List - Last Reconciled 12/01/22 by Paulino Constantino MD albuterol sulfate 90 mcg/actuation 2 puffs inhalation Q6H PRN buspirone 30 mg PO BEDTIME fluoxetine 40 mg PO BEDTIME lamotrigine ER 250 mg PO BEDTIME prednisone 20 mg PO DAILY 7 days Do you need a note to return to daycare/school/sports/work: Yes HPI EP, chest congestion, cough ([phone]) HPI Details 22-year-old female presents to the office for a sick visit. Patient tested positive for COVID 10 days ago. Two days ago she started having a nonproductive cough and sore throat. Feeling tired and weak. 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 [facility] Medical History Mood disorder Social History Household Members: None Housing: Apartment Alcohol intake: current Alcohol intake frequency: holidays/special occasions only Patient Tobacco Use Status: Never used Tobacco Substance Use Type: Marijuana service: No Physical Exam Vital Signs: Last Vital Signs Temp 96.2 F L 12/01/22 09:21 Pulse 76 12/01/22 09:21 BP 120/80 12/01/22 09:21 Pulse Ox 98 12/01/22 09:21 Oxygen Delivery Method Room Air 12/01/22 09:21 Const General: cooperative and healthy appearing Nutritional Appearance: well nourished Orientation/consciousness: patient oriented x3 Limitations: no limitations HEENT Head: Yes normal to inspection Eyes General: appearance normal, both eyes and all related structures Neck Neck: Yes normal visual inspection Chest Chest palpation & inspection: normal palpation of entire chest wall Resp Effort & Inspection: normal respiratory effort Neuro General: patient oriented x3 Assessment & Plan Assessment & Plan (1) Upper respiratory tract infection: Code(s): J06.9 - Acute upper respiratory infection, unspecified Plan: Antibiotics ordered. Increase fluid intake. Tylenol for aches and pains. If symptoms worsen, follow-up here for a recheck. Medications: New azithromycin take 500 mg today (day 1), then 250 mg for 4 days (days 2-5) PO 6 tabs 0RF Coding Level of Care Code Est Pt Level 3 (75095) Diagnoses Upper respiratory tract infection J06.9
[2022-12-01 09:21] VITALS: BP 120/80; PULSE 76; TEMP 35.7; O2SAT 98
== END 2022-12-01 10:03 | disposition home or self-care (01) ==
PROVIDERS: Visit Provider Internal Medicine
DX: J02.9 Acute pharyngitis, unspecified (principal)
CPT/HCPCS: 87880; 99213

== ENCOUNTER → 2023-04-25 10:55 | Outpatient (BNVA) | payer OTHER, SELFPAY | PROVIDERS: Referring Provider Internal Medicine; Visit Provider Nurse Practitioner Family ==

== ENCOUNTER 2023-05-01 14:39 | Outpatient (AMB) | payer OTHER, SELFPAY ==
[2023-05-01 15:02] VITALS: BP 126/68; PULSE 67; O2SAT 99; BMI 39.1
--- NOTE | 2023-05-01 15:02 | A.OFFVIS_ITS ---
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 She was referred by work connection for pulmonary evaluation prior to starting with the [email or web address]. She had spirometry performed at , report below. She has been quite active and denies respiratory symptoms with exercise over the past few years. In the past she did premedicate with albuterol but has not used albuterol in quite some time. She reports prolonged recovery after colds, otherwise denies chest tightness, wheezing, cough or dyspnea. Of note, she did report thao COVID on five separate occasions, recovering without medical intervention. She reports family history of environmental allergies, otherwise no pertinent history. She denies allergies. She has a cat, hamster and hedgehog. She denies occupational exposures. FORMERLY [facility] Medical History Mood disorder Social History Household Members: None Housing: Apartment Alcohol intake: current Alcohol intake frequency: holidays/special occasions only Patient Tobacco Use Status: Never used Tobacco Substance Use Type: Marijuana service: No Review of Systems Const Denies chills, Denies excessive sweating, Denies fever(s), Denies headache(s) and Denies night sweats Eyes Denies dry eyes, Denies irritation and Denies itchy eyes ENT Reports Normal hearing present, Denies headache(s), Denies nasal congestion, Denies nasal discharge, Denies post nasal drip and Denies sore throat Card Denies chest pain, Denies chest pain at rest, Denies chest pain with activity, Denies claudication, Denies leg edema, Denies dyspnea, Denies dyspnea on exertion, Denies orthopnea and Denies paroxysmal nocturnal dyspnea Resp Denies chest congestion, Denies cough, Denies excessive phlegm production, Denies pain on inspiration, Denies pain with cough, Denies dyspnea, Denies dyspnea on exertion, Denies stridor and Denies wheezing Musc Denies myalgias Neuro Reports Normal hearing present and Denies headache(s) Endo Denies excessive sweating Elie/Lymph Denies lymphadenopathy Aller/Immun Denies itchy eyes, Denies seasonal rhinorrhea and Denies wheezing Physical Exam Vital Signs: Last Vital Signs Pulse 67 05/01/23 15:02 BP 126/68 05/01/23 15:02 Pulse Ox 99 05/01/23 15:02 Oxygen Delivery Method Room Air 05/01/23 15:02 BMI result Body Mass Index 39.1 Const General: cooperative, healthy appearing, comfortable, no acute distress, well developed and alert Nutritional Appearance: obese Orientation/consciousness: patient oriented x3 Limitations: no limitations HEENT Head: Yes normal to inspection, Yes normocephalic and Yes atraumatic Ears: hearing grossly normal bilaterally and external ears normal Eyes General: appearance normal, both eyes and all related structures Eyelids: Yes eyelids normal Sclerae: sclerae normal EOM: EOMs intact bilaterally Neck Neck: Yes normal visual inspection and Yes no lymphadenopathy Lymphatic: no lymphadenopathy noted Chest Chest palpation & inspection: normal inspection of the chest Resp Effort & Inspection: normal respiratory effort, able to speak in complete sentences, no audible wheezes, no cough, no stridor, not tachypneic, no tripod positioning and no use of accessory muscles Auscultation: clear to auscultation bilaterally Cardio Jugular venous distension: no JVD Rate: regular rate Rhythm: regular rhythm Skin Other: warm, dry General skin exam: no rashes or lesions noted Neuro General: patient oriented x3 Cranial nerves: Yes Normal hearing present Cognition (Neuro): normal cognition Gait exam (Neuro): Normal gait present Extrem General: Yes normal to inspection, Yes capillary refill normal, Yes no clubbing, cyanosis or edema and Yes no pedal edema Psych Appearance: grossly normal and well kempt Speech and movement: Normal speech and movement present and Clear speech present Affect: normal affect Attitude: cooperative Thought process: Normal thought process present Thought content: Normal thought content present Insight: Good insight present (Psych) Judgement: Good judgement present (Psych) Results Reviewed Results Reviewed: Assessment & Plan Assessment & Plan (1) Exercise-induced asthma: Code(s): J45.990 - Exercise induced bronchospasm Plan Spirometry completed and did not reveal an obstructive defect, however there appears to be some discrepancy with the flow volume loop. Will send for PFT and possible methacholine challenge for thorough evaluation for candidacy to enter the [employer]. All questions were answered and patient is in agreement of plan. Will follow up to review results. Orders: Orders 2 PFT pulmonary function test Today J45.990 - Exercise induced bronchospasm Coding Level of Care Code New Pt Level 3 (29630) Diagnoses Exercise-induced asthma J45.990
== END 2023-05-01 15:41 | disposition home or self-care (01) ==
PROVIDERS: Visit Provider Nurse Practitioner Family
DX: J45.990 Exercise induced bronchospasm (principal)
CPT/HCPCS: 99203

== ENCOUNTER → 2023-05-01 14:39 | Outpatient (BNVA) | payer OTHER, SELFPAY | PROVIDERS: Visit Provider Nurse Practitioner Family ==

== ENCOUNTER 2023-05-02 09:22 | Outpatient (REF) | payer OTHER, SELFPAY ==
--- NOTE | 2023-05-02 10:06 | PFT_ITS ---
Indication: Asthma Spirometry [FEV1 to FVC 78%; FEV1 4.8 L; FVC 6.18 L. No significant response to bronchodilators. Maximum voluntary ventilation 112% predicted] Lung Volumes [Total lung capacity 121% predicted] Diffusion Capacity [DLCO 126% predicted] Comparisons [None] Interpretation [No obstructive nor restrictive ventilatory defects identified. No significant response to bronchodilators noted. Normal maximum voluntary ventilation. Lung volumes demonstrate a trend of hyperinflation. The patient also has a significantly elevated diffusion impairment. This suggest the possibility of exogenous exposure to carbon monoxide. If asthma is in the differential methacholine challenge may be helpful in assessing for hyperactive airways. Clinical correlation warranted.] MTDD
== END 2023-05-02 09:23 | disposition home or self-care (01) ==
LOC: HO.RESP 09:22
PROVIDERS: Visit Provider Nurse Practitioner Family
DX: J45.990 Exercise induced bronchospasm (principal)
CPT/HCPCS: 94010; 94727; 94729

== ENCOUNTER → 2023-05-02 10:06 | Outpatient (BNV) | payer OTHER, SELFPAY | PROVIDERS: Visit Provider Hospitalist | DX: J45.990 Exercise induced bronchospasm (principal) | CPT/HCPCS: 94060; 94727; 94729 ==

== ENCOUNTER 2023-05-16 12:52 | Outpatient (REF) | payer OTHER, SELFPAY ==
[2023-05-16 10:23] VITALS: PULSE 78; RESP 16; O2SAT 98
--- NOTE | 2023-05-16 14:14 | PFT_ITS ---
Methacholine challenge: No significant change in FEV1 with multiple administered concentrations of methacholine. Impression: Normal methacholine challenge test. No evidence of underlying asthma. MTDD
== END 2023-05-16 12:53 | disposition home or self-care (01) ==
LOC: HO.RESP 12:52
PROVIDERS: Visit Provider Nurse Practitioner Family
DX: J45.990 Exercise induced bronchospasm (principal)
CPT/HCPCS: 94010; 94640; 94727; 94729

== ENCOUNTER 2023-09-09 14:53 | Emergency (ER) | payer OTHER, SELFPAY ==
--- NOTE | ~2023-09-09 | XR_ITS ---
EXAMINATION: LEFT ANKLE, LEFT FOOT CLINICAL INFORMATION: Rolled ankle with question of some COMPARISON: None available. TECHNIQUE: 3 views left ankle, 3 views left foot FINDINGS: No significant bone, joint or soft tissue abnormality is seen. XR/XR foot LT 2V IMPRESSION: Negative exam.
--- NOTE | ~2023-09-09 | XR_ITS ---
EXAMINATION: LEFT ANKLE, LEFT FOOT CLINICAL INFORMATION: Rolled ankle with question of some COMPARISON: None available. TECHNIQUE: 3 views left ankle, 3 views left foot FINDINGS: No significant bone, joint or soft tissue abnormality is seen. XR/XR ankle LT min 3V IMPRESSION: Negative exam.
[2023-09-09 15:04] VITALS: BP 152/96; PULSE 93; RESP 16; TEMP 36.6; O2SAT 96; BMI 36.9
--- NOTE | 2023-09-09 15:05 | ED_ITS ---
HPI - General Adult General Chief complaint: Extremity Injury, Lower Stated complaint: L ankle injury Time Seen by Provider: 09/09/23 15:03 Source: patient Mode of arrival: ambulatory Limitations: no limitations History of Present Illness HPI narrative: patient is a 23 year old female presents emergency department for evaluation of left ankle pain. Reports mechanical twisting and inversion injury to the foot while doing [employer] exercises. Has point tenderness over the lateral anterior ankle, exacerbated pain to the lateral malleolus with plantar flexion of the foot, pain radiates up the lateral leg with dorsiflexion. Denies numbness tingling or cold sensation to the foot. Is able to weightbear but it does exacerbate the pain. Denies redness, swelling, fevers, chills. Related Data Home Medications ?Medication ?Instructions ?Recorded ?Confirmed albuterol sulfate 90 mcg/actuation 2 puff inhalation Q6H PRN wheezing 07/12/21 05/01/23 aerosol inhaler buspirone 30 mg tablet 30 mg PO BEDTIME 07/12/21 05/01/23 fluoxetine 40 mg capsule 40 mg PO BEDTIME 07/12/21 05/01/23 lamotrigine 250 mg tablet,extended 250 mg PO BEDTIME 07/12/21 05/01/23 release 24 hr loratadine 10 mg tablet (Allergy 20 mg PO DAILY 05/01/23 05/01/23 Relief (loratadine)) Allergies Allergy/AdvReac Type Severity Reaction Status Date / Time No Known Allergies Allergy Verified 09/09/23 15:04 Review of Systems Review of Systems: Yes all other systems are reviewed and are negative PMFSH Past Medical History Attestation statement: The following information was validated with the patient. Source: old records reviewed Medical History Mood disorder Social History Social History Household Members: None Housing: Apartment Alcohol intake: current Alcohol intake frequency: holidays/special occasions only Patient Tobacco Use Status: Never used Tobacco Substance Use Type: Marijuana Advance Directives: No Advance Directives Information Provided: No Do you have a plan to hurt others: No Plan service: No Physical Exam ED Vital Signs: Vital Signs - 24 hr 09/09/23 15:04 09/09/23 16:00 09/09/23 16:32 Temperature 97.9 F 98.2 F 98.2 F Pulse Rate 93 89 89 Respiratory Rate 16 17 17 Blood Pressure 152/96 H 131/86 131/86 Pulse Oximetry 96 97 97 Oxygen Delivery Method Room Air Room Air Room Air BMI result Body Mass Index 36.9 Appearance: Alert.?Oriented to person, place and time. No acute distress.?Normal affect. Neck: Normal inspection.? Neck supple.?? CVS: Heart sounds normal. Normal heart rate and rhythm.? Pulses normal.?? Respiratory: No respiratory distress.? Lung sounds clear to auscultation bilaterally?? Skin: Skin warm and dry.? Normal skin color.? Extremities: No lower extremity edema.? No calf ttp. Full AROM is intact. 2+ DP/PT pulse bilaterally. Negative calf squeeze/Juan testing. Neuro: Moves all extremities spontaneously. Sensation intact bilaterally. Ambulates with Antalgic gait. Course Course Course Narrative: RME: Done by CHIP Spence. Patient states left ankle pain after rolling ankle while doing acadamey excercises. positive for mild anterior left ankle tenderness. motor, neuro, and vascular exam is intact. negative for signs of achilles aor calf muicle tear. ankle and foot xray ordered. Medical Decision Making Medical Decision Making MDM Narrative: patient is a 23-year-old female who presents emergency department for eval uation of traumatic left ankle pain. examination not consistent with constant and rupture, calf rupture. Full range of motion extremity is neurovascularly intact distally. No tenderness to the lateral ankle concerning for a sprain. XR was obtained to fracture/dislocation which was negative. Symptoms at this time was consistent with ankle sprain. Advised rest, ice compression, elevation, acetaminophen / ibuprofen. All questions answered. Stable for discharge. Differential Diagnosis Differential Diagnoses: The differential diagnosis associated with the presentation includes ( See narrative above) Independent Interpretation I performed an independent interpretation of an: Plain X-Ray ( No acute fracture) Radiology Impression Discussion of test interpretation with radiology: I have reviewed the radiologist's reading. Radiologist Impression: XR/XR foot LT 2V IMPRESSION: Negative exam. Prescription Management I considered prescription management with: Pain Medication ( acetaminophen/ibuprofen) Discharge Plan Discharge Clinical Impression: Ankle sprain Patient Disposition: Home, Self-Care Instructions: Ankle Sprain (ED), R.I.C.E. Treatment (ED) Additional Instructions: You can take ibuprofen 200 mg, 3 tablets (600mg) every 6-8 hours as needed for pain, in addition to Tylenol 500 mg, 2 tablets (1,000mg) every 4-6 hours as needed for pain, but not to exceed 3 doses daily (3,000mg).? Prescriptions: No Action buspirone 30 mg tablet 30 mg PO BEDTIME lamotrigine 250 mg tablet extended release 24hr 250 mg PO BEDTIME fluoxetine 40 mg capsule 40 mg PO BEDTIME albuterol sulfate 90 mcg/actuation HFA aerosol inhaler 2 puff inhalation Q6H PRN (Reason: wheezing) loratadine [Allergy Relief (loratadine)] 10 mg tablet 20 mg PO DAILY Referrals: Physician,Nonstaff [Primary Care Provider] - Stand Alone Forms: Work/School Release Interventions: ED Discharge Assessment Last Done: 09/09/23 16:32 Discharge Date/Time: 09/09/23 16:33 Print Language: Tanzanian
[2023-09-09 16:00] VITALS: BP 131/86; PULSE 89; RESP 17; TEMP 36.8; O2SAT 97
[2023-09-09 16:32] VITALS: BP 131/86; PULSE 89; RESP 17; TEMP 36.8; O2SAT 97
== END 2023-09-09 16:33 | disposition home or self-care (01) ==
PROVIDERS: Emergency Provider Emergency Medicine
DX: S93.402A Sprain of unspecified ligament of left ankle, initial encounter (principal); X50.1XXA Overexertion from prolonged static or awkward postures, initial encounter; Y93.B9 Activity, other involving muscle strengthening exercises; Y92.9 Unspecified place or not applicable; Y99.9 Unspecified external cause status
CPT/HCPCS: 73610; 73620; 99283; 99284

== ENCOUNTER 2024-01-25 22:39 | Emergency (ER) | payer OTHER, SELFPAY ==
--- NOTE | ~2024-01-25 | XR_ITS ---
EXAMINATION: XR CHEST 2 VIEWS CLINICAL INFORMATION: Cough. COMPARISON: Chest radiograph dated 04/03/2023. TECHNIQUE: Frontal and lateral views of the chest were obtained. FINDINGS: The heart, great vessels, pulmonary vasculature and mediastinum are normal. The lungs show no focal infiltrate, effusion or pneumothorax. There is no acute osseous abnormality. XR/XR chest 2V IMPRESSION: No active cardiopulmonary disease. Electronically signed by: Arthur Veliz MD 01/25/2024 11:40 PM EDT
[2024-01-25 22:40] VITALS: BP 140/93; PULSE 97; RESP 18; TEMP 37.4; O2SAT 99; BMI 36.9
[2024-01-25 23:22] LABS: IDNOW Serial# 6674DD1D; Strep A Nucleic Acid Negative (Negative)
[2024-01-25 23:27] LABS: Monotest Negative (Negative)
--- NOTE | 2024-01-25 23:50 | ED.URI ---
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 since yesterday her friend was positive for mono also does have dry cough no fever no shortness a breath Related Data Home Medications ?Medication ?Instructions ?Recorded ?Confirmed albuterol sulfate 90 mcg/actuation 2 puff inhalation Q6H PRN wheezing 07/12/21 05/01/23 aerosol inhaler buspirone 30 mg tablet 30 mg PO BEDTIME 07/12/21 05/01/23 fluoxetine 40 mg capsule 40 mg PO BEDTIME 07/12/21 05/01/23 lamotrigine 250 mg tablet,extended 250 mg PO BEDTIME 07/12/21 05/01/23 release 24 hr loratadine 10 mg tablet (Allergy 20 mg PO DAILY 05/01/23 05/01/23 Relief (loratadine)) Previous Rx's ?Medication ?Instructions ?Recorded benzonatate 200 mg capsule 200 mg PO TID PRN cough #30 caps 01/26/24 cefuroxime axetil 500 mg tablet 500 mg PO BID 7 days #14 tabs 01/26/24 Allergies Allergy/AdvReac Type Severity Reaction Status Date / Time No Known Allergies Allergy Verified 01/25/24 22:41 Review of Systems Review of Systems: Yes all other systems are reviewed and are negative PMFSH Past Medical History Medical History Mood disorder Social History Social History Household Members: None Housing: Apartment Alcohol intake: current Alcohol intake frequency: holidays/special occasions only Patient Tobacco Use Status: Never used Tobacco Smoked in Last 30 Days: No Use of substances other than those prescribed or required for medical reasons: No Substance Use Type: Marijuana Advance Directives: No Patient : No service: No Physical Exam Vital Signs: Vital Signs: Last Vital Signs Temp 97.4 F 01/26/24 00:33 Pulse 83 01/26/24 00:33 Resp 16 01/26/24 00:33 BP 128/70 01/26/24 00:33 Pulse Ox 98 01/26/24 00:33 O2 Del Method Room Air 01/26/24 00:33 BMI result Body Mass Index 36.9 Appearance: Alert. Oriented X3. No acute distress. ENT: Pharynx erythematous no exudate Oral Mucosa moist Neck: Normal inspection. Neck supple. CVS: Normal heart rate and rhythm. Pulses normal. Respiratory: No respiratory distress. Equal air entry bilateral, Abdomen: Soft and nontender. Skin: Skin warm and dry. Normal skin color. Normal skin turgor. Neuro: Oriented X 3. Medications Administered Discontinued Medications Generic Name Dose Route Start Last Admin Trade Name Freq PRN Reason Stop Dose Admin Cefuroxime Axetil 500 mg 01/26/24 00:09 01/26/24 00:27 Cefuroxime Axetil 500 Mg Tablet PO 01/26/24 00:10 500 mg ONCE ONE Administration Medical Decision Making Medical Decision Making [facility] Narrative: Patient with pharyngitis likely bacterial COVID flu RSV strep negative Lab Data [facility] Lab Attestation statement: I reviewed the patient's lab results. Labs: Lab Results 01/25/24 Range/Units 23:08 Monoscreen Negative (Negative) Influenza Type A (PCR) NEGATIVE (Negative) Influenza Type B (PCR) NEGATIVE (Negative) RSV RNA Qual (PCR) NEGATIVE (Negative) SARS-CoV-2 RNA (RT-PCR) NEGATIVE (Negative) S. pyogenes GrpA MATTHEW Negative (Negative) Discharge Plan Discharge Clinical Impression: Acute pharyngitis Patient Disposition: Home, Self-Care Instructions: Pharyngitis (ED) Additional Instructions: Cause of your pharyngitis likely atypical bacteria/virus COVID flu RSV mono and strep negative Take antibiotic as prescribed Cough drops as prescribed Prescriptions: New benzonatate 200 mg capsule 200 mg PO TID PRN (Reason: cough) Qty: 30 0RF cefuroxime axetil 500 mg tablet 500 mg PO BID 7 Days Qty: 14 0RF No Action buspirone 30 mg tablet 30 mg PO BEDTIME lamotrigine 250 mg tablet extended release 24hr 250 mg PO BEDTIME fluoxetine 40 mg capsule 40 mg PO BEDTIME albuterol sulfate 90 mcg/actuation HFA aerosol inhaler 2 puff inhalation Q6H PRN (Reason: wheezing) loratadine [Allergy Relief (loratadine)] 10 mg tablet 20 mg PO DAILY Interventions: ED Discharge Assessment Last Done: 01/26/24 00:33 Discharge Date/Time: 01/26/24 00:34 Print Language: Sinhala
[2024-01-25 23:51] LABS: Influenza A PCR NEGATIVE (Negative); Influenza B PCR NEGATIVE (Negative); Resp Syncy Virus RNA Qual PCR NEGATIVE (Negative); SARS COV2 PCR INHOUSE NEGATIVE (Negative)
[2024-01-26] MEDS: cefuroxime axetiL 500 MG TABLET PO (00:27)
[2024-01-26 00:28] VITALS: BP 128/70; PULSE 83; RESP 16; TEMP 36.2; O2SAT 98
[2024-01-26 00:31] VITALS: O2SAT 98
--- NOTE | 2024-01-26 00:31 | PC.NURSE ---
pt a&o, medicated per mar, reviewed discharge instructions with pt, pt verbalized understanding, no respiratory distress, pt able to speak in full sentence, no respiratory retractions, pt able to ambulate with a steady gait upon discharge.
[2024-01-26 00:33] VITALS: BP 128/70; PULSE 83; RESP 16; TEMP 36.3; O2SAT 98
== END 2024-01-26 00:34 | disposition home or self-care (01) ==
PROVIDERS: Emergency Provider Internal Medicine; PCP Internal Medicine Cardiovascular Disease
DX: J02.9 Acute pharyngitis, unspecified (principal); R05.9 Cough, unspecified; R09.89 Other specified symptoms and signs involving the circulatory and respiratory systems; Z03.818 Encounter for observation for suspected exposure to other biological agents ruled out
CPT/HCPCS: 0241U; 36415; 71046; 86308; 87651; 99283; 99284

== ENCOUNTER 2024-09-12 11:00 | Outpatient (RCR) | payer OTHER, SELFPAY | END 2024-10-21 09:42 | disposition home or self-care (01) | LOC: HO.PTCHIC 11:00 | PROVIDERS: PCP Internal Medicine; Visit Provider Psychiatry & Neurology Neurology | DX: G61.0 Guillain-Barre syndrome (principal) | CPT/HCPCS: 97110; 97112; 97162; 97530 ==